=== PATIENT | female | born 1950 | race American Indian/Alaskan Native ===

== ENCOUNTER 2016-11-29 06:45 | Inpatient (IN) | payer MEDICARE ==
[2016-11-29 07:37] LABS: Creatine Kinase MB 1.5 ng/mL (0.0-4.0)
[2016-11-29 07:38] LABS: Anion Gap 21 mmol/L; BUN/Creatinine Ratio 14.16; Blood Urea Nitrogen 17 mg/dL (7-17); Calcium 9.7 mg/dL (8.4-10.2); Carbon Dioxide 22 mmol/L (22-30); Chloride 100.5 mmol/L (98-107); Creatine Kinase 53 units/L (30-135); Glucose 119 mg/dL (65-100); Potassium 4.1 mmol/L (3.6-5.0); Sodium 139 mmol/L (137-145)
[2016-11-29 08:10] LABS: Basophils % (Auto) 0.7 % (0.0-1.8); Eosinophils % (Auto) 1.4 % (0.0-4.3); Hematocrit 47.1 % (30.3-42.9); Hemoglobin 15.3 gm/dl (10.1-14.3); Mean Corpuscular HGB Conc 32 % (30-34); Mean Corpuscular Hemoglobin 28 pg (28-32); Mean Corpuscular Volume 86 fl (79-97); Platelet Count 222 K/mm3 (140-440); Red Blood Count 5.47 M/mm3 (3.65-5.03); Red Cell Distribution Width 14.2 % (13.2-15.2); White Blood Count 8.8 K/mm3 (4.5-11.0)
--- NOTE | 2016-11-29 09:33 | XRay Report ---
Chest 2 views: Compared to 05/03/15. History: Shortness of breath. Findings: Cardiomegaly. Trachea is midline. No consolidation, pneumothorax or pleural effusion. Impression: Cardiomegaly. No acute lung changes.
--- NOTE | 2016-11-29 10:17 | Emergency Department Report ---
ED Shortness of Breath HPI - General Chief Complaint: Dyspnea/Respdistress Stated Complaint: DIFFICULTY IN BREATHING Time Seen by Provider: 11/29/16 10:10 Source: patient Mode of arrival: Ambulatory Limitations: No Limitations - History of Present Illness Initial Comments: The patient describes episodes of essentially paroxysmal nocturnal dyspnea. She states that this occurs when a 1 time a night. She does not describe difficulty and cough or hemoptysis. She denies chest pain pressure or tightness. She's had no hemoptysis. She denies leg pain or swelling. She does state that these episodes to improve with sitting up. The patient is status post CABG she states triple bypass at [facility] 5 years ago. She states she has not followed up with department director for quite some time maybe even since then. She is probably had an angioplasty of her right leg as well. She does not complain of any claudication symptoms. She does not give a history of CHF per se. She has a history of hypertension. Apparently the patient was hyperventilating on arrival. This did improve with nursing de-escalation. At the time I saw her she was breathing normal respiratory rate. Complaint: shortness of breath -: week(s) Consistency: intermittent Known History Of: other Associated Symptoms: denies other symptoms Treatments Prior to Arrival: none - Related Data Home Oxygen Therapy: No Home Medications Medication Instructions Recorded Confirmed Last Taken Cilostazol [Pletal] 50 mg PO BID 02/23/16 02/23/16 Unknown Clopidogrel [Plavix] 75 mg PO QDAY 02/23/16 02/23/16 Unknown Lisinopril [Zestril TAB] 40 mg PO QDAY 02/23/16 02/23/16 02/22/16 Previous Rx's Medication Instructions Recorded Last Taken Type Metoprolol [Lopressor TAB] 50 mg PO BID #60 tablet 05/04/15 02/22/16 Rx amLODIPine [Norvasc] 10 mg PO QDAY #30 tablet 05/04/15 Unknown Rx Allergies Allergy/AdvReac Type Severity Reaction Status Date / Time No Known Allergies Allergy Verified 05/03/15 03:02 ED Review of Systems ROS: Stated complaint: DIFFICULTY IN BREATHING Other details as noted in HPI Constitutional: denies: chills, fever Eyes: denies: eye pain, eye discharge, vision change ENT: denies: ear pain, throat pain Respiratory: shortness of breath. denies: cough, wheezing Cardiovascular: denies: chest pain, palpitations Endocrine: no symptoms reported Gastrointestinal: denies: abdominal pain, nausea, diarrhea Genitourinary: denies: urgency, dysuria, discharge Musculoskeletal: denies: back pain, joint swelling, arthralgia Skin: denies: rash, lesions Neurological: denies: headache, weakness, paresthesias Psychiatric: denies: anxiety, depression Hematological/Lymphatic: denies: easy bleeding, easy bruising ED Past Medical Hx - Past Medical History Previous Medical History?: Yes Hx Hypertension: Yes Hx Heart Attack/AMI: Yes - Surgical History Past Surgical History?: Yes Additional Surgical History: triple bypass, rt leg surgery,CS - Social History Smoking Status: Never Smoker Substance Use Type: None - Medications Home Medications: Home Medications Medication Instructions Recorded Confirmed Last Taken Type Metoprolol [Lopressor TAB] 50 mg PO BID #60 tablet 05/04/15 02/23/16 02/22/16 Rx amLODIPine [Norvasc] 10 mg PO QDAY #30 tablet 05/04/15 02/23/16 Unknown Rx Cilostazol [Pletal] 50 mg PO BID 02/23/16 02/23/16 Unknown History Clopidogrel [Plavix] 75 mg PO QDAY 02/23/16 02/23/16 Unknown History Lisinopril [Zestril TAB] 40 mg PO QDAY 02/23/16 02/23/16 02/22/16 History ED Physical Exam - General Limitations: No Limitations General appearance: alert, in no apparent distress - Head Head exam: Present: atraumatic, normocephalic - Eye Eye exam: Present: normal appearance. Absent: scleral icterus - ENT ENT exam: Present: normal exam, mucous membranes moist - Neck Neck exam: Present: normal inspection. Absent: tenderness, meningismus - Respiratory Respiratory exam: Present: normal lung sounds bilaterally. Absent: respiratory distress - Cardiovascular Cardiovascular Exam: Present: regular rate, normal rhythm. Absent: systolic murmur, diastolic murmur, rubs, gallop - GI/Abdominal GI/Abdominal exam: Present: soft, normal bowel sounds. Absent: distended, tenderness, guarding, rebound, rigid - Extremities Exam Extremities exam: Present: normal inspection - Back Exam Back exam: Present: normal inspection - Neurological Exam Neurological exam: Present: alert, oriented X3, CN II-XII intact. Absent: motor sensory deficit - Psychiatric Psychiatric exam: Present: normal affect, normal mood - Skin Skin exam: Present: warm, dry, intact, normal color. Absent: rash ED Course Vital Signs 11/29/16 11/29/16 11/29/16 06:52 09:11 09:20 Temperature 98.6 F Pulse Rate 98 H 88 Respiratory 24 28 H Rate Blood Pressure 168/115 Blood Pressure 179/106 [Right] O2 Sat by Pulse 99 99 100 Oximetry 11/29/16 11/29/16 11/29/16 09:23 09:30 09:40 Temperature 98.1 F Pulse Rate 85 80 82 Respiratory 16 21 15 Rate Blood Pressure 166/89 166/89 Blood Pressure 168/115 [Right] O2 Sat by Pulse 98 99 100 Oximetry 11/29/16 11/29/16 11/29/16 09:50 10:00 10:10 Temperature Pulse Rate 85 Respiratory 19 24 12 Rate Blood Pressure 162/88 159/88 162/88 Blood Pressure [Right] O2 Sat by Pulse 100 99 99 Oximetry 11/29/16 11/29/16 11/29/16 10:20 11:38 11:40 Temperature Pulse Rate Respiratory 12 15 19 Rate Blood Pressure 162/90 162/90 162/90 Blood Pressure [Right] O2 Sat by Pulse 99 99 99 Oximetry 11/29/16 11/29/16 11/29/16 11:50 12:00 12:10 Temperature Pulse Rate Respiratory 15 10 L 15 Rate Blood Pressure 164/104 156/100 162/90 Blood Pressure [Right] O2 Sat by Pulse 97 97 99 Oximetry 11/29/16 11/29/16 11/29/16 12:20 12:30 12:40 Temperature Pulse Rate Respiratory 15 14 16 Rate Blood Pressure 168/109 162/108 162/108 Blood Pressure [Right] O2 Sat by Pulse 99 99 99 Oximetry 11/29/16 11/29/16 15:10 15:15 Temperature Pulse Rate 105 H Respiratory 16 Rate Blood Pressure 162/108 Blood Pressure 178/119 [Right] O2 Sat by Pulse 98 98 Oximetry - Reevaluation(s) Reevaluation #1: CTA of the chest was performed to exclude pulmonary embolism. Per the radiologist that showed an incidental guide wire piece in the patient's left pulmonary artery. It was not very compelling for pulmonary edema. In fact the lung barajas were essentially clear. Cardiomegaly was noted. 11/29/16 15:39 Reevaluation #2: Patient given aspirin and hydralazine and Nitropaste. She is referred to Dr. Constantino for further evaluation on the hospitalist service. I believe the radiologist's observation of the pulmonary intralobar artery catheter wire months surely be chronic as the patient has had no catheterization for 5 years 11/29/16 15:43 ED Medical Decision Making - Lab Data Result diagrams: 11/29/16 07:03 11/29/16 07:03 Laboratory Results - last 24 hr 11/29/16 11/29/16 07:03 07:03 WBC 8.8 RBC 5.47 H Hgb 15.3 H Hct 47.1 H MCV 86 MCH 28 MCHC 32 RDW 14.2 Plt Count 222 Lymph % (Auto) 24.8 [place] % (Auto) 5.9 Eos % (Auto) 1.4 Baso % (Auto) 0.7 Lymph # 2.2 [place] # 0.5 Eos # 0.1 Baso # 0.1 Seg Neutrophils % 67.2 Seg Neutrophils # 5.9 Sodium 139 Potassium 4.1 Chloride 100.5 Carbon Dioxide 22 Anion Gap 21 BUN 17 Creatinine 1.2 Estimated GFR 55 BUN/Creatinine Ratio 14.16 Glucose 119 H Calcium 9.7 Total Creatine Kinase 53 CK-MB (CK-2) 1.5 CK-MB (CK-2) Rel Index 2.8 Troponin T < 0.010 NT-Pro-B Natriuret Pep 7335 H Laboratory Results - last 24 hr 11/29/16 11/29/16 11/29/16 07:03 07:03 10:34 WBC 8.8 RBC 5.47 H Hgb 15.3 H Hct 47.1 H MCV 86 MCH 28 MCHC 32 RDW 14.2 Plt Count 222 Lymph % (Auto) 24.8 [place] % (Auto) 5.9 Eos % (Auto) 1.4 Baso % (Auto) 0.7 Lymph # 2.2 [place] # 0.5 Eos # 0.1 Baso # 0.1 Seg Neutrophils % 67.2 Seg Neutrophils # 5.9 Sodium 139 Potassium 4.1 Chloride 100.5 Carbon Dioxide 22 Anion Gap 21 BUN 17 Creatinine 1.2 Estimated GFR 55 BUN/Creatinine Ratio 14.16 Glucose 119 H Calcium 9.7 Total Creatine Kinase 53 CK-MB (CK-2) 1.5 CK-MB (CK-2) Rel Index 2.8 Troponin T < 0.010 NT-Pro-B Natriuret Pep 7335 H Urine Color Straw Urine Turbidity Clear Urine pH 5.0 Ur Specific [place] 1.004 Urine Protein <15 mg/dl Urine Glucose (UA) Neg Urine Ketones Neg Urine Blood Neg Urine Nitrite Neg Urine Bilirubin Neg Urine Urobilinogen < 2.0 Ur Leukocyte Esterase Neg Urine WBC (Auto) < 1.0 Urine RBC (Auto) 1.0 U Epithel Cells (Auto) < 1.0 - EKG Data -: EKG Interpreted by Me EKG shows normal: sinus rhythm, axis, intervals, QRS complexes, ST-T waves Rate: normal - EKG Data Interpretation: LVH, other (occasional PVC) - Radiology Data Radiology results: report reviewed interpreted by me: Associated cardiomegaly and perhaps slight cephalization of flow. CTA of the chest was performed to exclude pulmonary embolism. Per the radiologist that showed an incidental guide wire piece in the patient's left pulmonary artery. It was not very compelling for pulmonary edema. In fact the lung barajas were essentially clear. Cardiomegaly was noted. Critical care attestation.: If time is entered above; I have spent that time in minutes in the direct care of this critically ill patient, excluding procedure time. ED Disposition Clinical Impression: Paroxysmal nocturnal dyspnea, Diastolic dysfunction, Foreign body, Uncontrolled hypertension Disposition: OP ADMITTED IP TO THIS HOSP Is pt being admited?: Yes Does the pt Need Aspirin: Yes Condition: Stable Instructions: Hypertension (ED) Referrals: PRIMARY CARE, [Primary Care Provider] - 3-5 Days Time of Disposition: 15:43
[2016-11-29] MEDS ORDERED: NACL 0.9% 1000 ML 1,000 ML IV ONE (10:29)
[2016-11-29] MEDS ORDERED: ROCEPHIN/NS 1 GM/50 ML 1 GM/50 ML BAG IV ONE (10:29)
[2016-11-29] MEDS ORDERED: ZOFRAN IV ONE (10:29)
[2016-11-29 10:51] LABS: Bilirubin,Urine NEG (Negative); Blood,Urine NEG (Negative); Ketones,Urine NEG (Negative); Leukocyte Esterase,Urine NEG (Negative); Nitrite,Urine NEG (Negative); Protein,Urine <15 mg/dL mg/dL (Negative); Urobilinogen,Urine < 2.0 mg/dL (<2.0); WBC,Urine < 1.0 /HPF (0.0-6.0)
[2016-11-29 11:07] LABS: INR 1.02 (0.87-1.13)
[2016-11-29 11:08] LABS: Partial Thromboplastin Time 27.9 Sec. (24.2-36.6)
[2016-11-29 11:11] LABS: Alanine Aminotransferase 27 units/L (7-56); Albumin 4.3 g/dL (3.9-5); Albumin/Globulin Ratio 1.6 %; Alkaline Phosphatase 97 units/L (35-129); Bilirubin,Total 0.8 mg/dL (0.1-1.2)
[2016-11-29 11:29] LABS: Bilirubin,Direct < 0.2 mg/dL (0-0.2)
[2016-11-29] MEDS ORDERED: NACL ONE ×2 (12:06→13:56)
--- NOTE | 2016-11-29 14:48 | Cat Scan Report ---
FINAL REPORT EXAM: CT ANGIO CHEST HISTORY: SALTY TECHNIQUE: CTA of the chest with IV contrast. Multiplanar reformations. MIP images. PRIORS: None. FINDINGS: No thoracic aortic aneurysm or dissection seen. Moderate cardiac enlargement. Visualized portions of the upper abdomen show no significant abnormality. Status post sternotomy. No pathologically enlarged lymph nodes seen. No pulmonary embolism seen. There is a linear metallic density in the left interlobar artery, compatible with a foreign body. This could be from a prior catheterization. No thrombus is seen, however. No pleural effusion or significant lung consolidation seen. IMPRESSION: 1. No pulmonary embolism seen. Metallic wire in the left intralobar artery may be from a prior catheterization procedure. [place] Category 1 finding. I discussed these results immediately before signing this report with Dr. Mills.
[2016-11-29] MEDS ORDERED: NITRO-BID 2% TP ONE (15:33)
[2016-11-29] MEDS ORDERED: APRESOLINE IV ONE (15:33)
[2016-11-29] MEDS ORDERED: ASPIRIN PO ONE (15:33)
--- NOTE | 2016-11-29 15:58 | History and Physical Report ---
History of Present Illness Chief complaint: I cant breathe History of present illness: 66 YO Female with HTN, [place], CAD, PUD, HLD, Vertigo, presents to ED for evaluation. Pt states that she has been experiencing shortness of breath for the past several days, with worsening symptoms over the past 1 day. Pt acknowledges orthopnea, PND, and l bilateral leg swelling. Pt denies productive cough, fever, chills, CP, Palpitations, NVD, syncope, vertigo, trauma, prolonged immobility/travel, individual/family history of DVT/PE. Past History Past Medical History: acute [place], CAD, hyperlipidemia Past Surgical History: CABG, , Other (Right leg surgery) Social history: single. denies: smoking, alcohol abuse, prescription drug abuse Family history: CAD, diabetes, hypertension Medications and Allergies Allergies Allergy/AdvReac Type Severity Reaction Status Date / Time No Known Allergies Allergy Verified 05/03/15 03:02 Home Medications Medication Instructions Recorded Confirmed Last Taken Type Metoprolol [Lopressor TAB] 50 mg PO BID #60 tablet 05/04/15 11/29/16 02/22/16 Rx amLODIPine [Norvasc] 10 mg PO QDAY #30 tablet 05/04/15 11/29/16 Unknown Rx Cilostazol [Pletal] 50 mg PO BID 02/23/16 11/29/16 Unknown History Clopidogrel [Plavix] 75 mg PO QDAY 02/23/16 11/29/16 Unknown History Lisinopril [Zestril TAB] 40 mg PO QDAY 02/23/16 11/29/16 02/22/16 History ALBUTEROL Inhaler [Proair] 2 puff IH QID PRN 11/29/16 11/29/16 Unknown History AtorvaSTATin [Lipitor] 80 mg PO QHS 11/29/16 11/29/16 Unknown History Hydrochlorothiazide [HCTZ] 25 mg PO QAM 11/29/16 11/29/16 Unknown History Review of Systems All systems: negative Cardiovascular: orthopnea, shortness of breath, dyspnea on exertion, paroxysmal nocturnal dyspnea, leg edema Respiratory: shortness of breath Exam - Constitutional Vitals: Temp Pulse Resp BP Pulse Ox 98.1 F 105 H 16 178/119 98 11/29/16 09:23 11/29/16 15:15 11/29/16 15:15 11/29/16 15:15 11/29/16 15:15 General appearance: Present: no acute distress, well-nourished - EENT Eyes: Present: PERRL ENT: hearing intact, clear oral mucosa - Neck Neck: Present: supple, normal ROM - Respiratory Respiratory effort: normal Respiratory: bilateral: diminished, rhonchi - Cardiovascular Heart Sounds: Present: S1 & S2. Absent: rub, click - Extremities Extremities: pulses symmetrical, No edema Extremity abnormal: edema Peripheral Pulses: within normal limits - Abdominal General gastrointestinal: Present: soft, non-tender, non-distended, normal bowel sounds Female genitourinary: Present: normal - Integumentary Integumentary: Present: clear, warm, dry - Musculoskeletal Musculoskeletal: gait normal, strength equal bilaterally - Psychiatric Psychiatric: appropriate mood/affect, intact judgment & insight - Neurologic Neurologic: CNII-XII intact, moves all extremities Results - Labs CBC & Chem 7: 11/29/16 07:03 11/29/16 07:03 Labs: Abnormal lab results 11/29/16 11/29/16 11/29/16 Range/Units 07:03 07:03 10:39 RBC 5.47 H (3.65-5.03) M/mm3 Hgb 15.3 H (10.1-14.3) gm/dl Hct 47.1 H (30.3-42.9) % D-Dimer 486.58 H (0-234) ng/mlDDU Glucose 119 H (65-100) mg/dL NT-Pro-B Natriuret Pep 7335 H (0-900) pg/mL Assessment and Plan - Patient Problems (1) Acute respiratory failure with hypoxemia Current Visit: Yes Status: Acute Plan to address problem: Supplemental oxygen, nebs, aspiration precautions, NIPPV as clinically indicated , pulmonary toilet, incentive spirometry (2) CHF (congestive heart failure) Current Visit: Yes Status: Suspected Qualifiers: Congestive heart failure type: C Congestive heart failure chronicity: C Plan to address problem: CHF Protocol: Cardiology consulted, echo, serial cardiac enzymes, ekg, telemetry monitoring, fluid restriction, daily weight, afterload reduction. (3) Accelerated hypertension Current Visit: Yes Status: Acute Plan to address problem: monitor bp q shift, continue current antihypertensive therapy (4) HLD (hyperlipidemia) Current Visit: Yes Status: Acute Qualifiers: Hyperlipidemia type: H Plan to address problem: continue statin therapy (5) DVT prophylaxis Current Visit: Yes Status: Acute
[2016-11-29] MEDS ORDERED: ZOFRAN IV PRN (17:43)
[2016-11-29] MEDS ORDERED: TYLENOL PO PRN (17:43)
[2016-11-29] MEDS ORDERED: SODIUM CHLORIDE FLUSH SYRINGE 10 ML IV PRN (17:48)
[2016-11-29] MEDS ORDERED: PROAIR IH PRN (17:57)
[2016-11-29] MEDS ORDERED: PROVENTIL IH PRN (18:25)
[2016-11-29 18:36] LABS: Creatine Kinase MB 1.4 ng/mL (0.0-4.0)
[2016-11-29 18:39] LABS: Creatine Kinase 54 units/L (30-135)
[2016-11-29] MEDS: DUONEB 0.5 MG-3 MG/3 ML SOLN IH SCH ×2 (20:39→21:38)
[2016-11-29 21:07] LABS: Creatine Kinase MB 1.7 ng/mL (0.0-4.0)
[2016-11-29 21:08] LABS: Creatine Kinase 70 units/L (30-135)
[2016-11-29] MEDS: LOPRESSOR PO SCH (21:43)
[2016-11-29] MEDS: PLETAL PO SCH (21:44)
[2016-11-30] MEDS: DUONEB 0.5 MG-3 MG/3 ML SOLN IH SCH ×4 (01:03→20:00)
[2016-11-30] MEDS: LASIX IV SCH (09:37)
[2016-11-30] MEDS: PLAVIX PO SCH (09:38)
[2016-11-30] MEDS: PLETAL PO SCH ×2 (09:38→22:21)
[2016-11-30] MEDS: NORVASC PO SCH (09:39)
[2016-11-30] MEDS: LOPRESSOR PO SCH ×2 (09:39→21:50)
[2016-11-30] MEDS: ZESTRIL PO SCH (09:40)
[2016-11-30] MEDS: HCTZ PO SCH (09:40)
--- NOTE | 2016-11-30 10:35 | Progress Note ---
Assessment and Plan Assessment and plan: 1. Acute hypoxemic respiratory failure. Continue supplemental oxygen, pulmonary toileting, incentive spirometry and NIPPV as needed. Etiology secondary to CHF exacerbation. 2. Acute CHF decompensation. Etiology of systolic or diastolic unknown. Check echocardiogram. Cardiology consultation pending. Continue CHF protocol. 3. Accelerated hypertension. Continue antihypertensives medications. 4. Hyperlipidemia. Continue statin therapy. 5. DVT prophylaxis. Start Lovenox daily. History Interval history: History of present illness: 66 YO Female with HTN, [place], CAD, PUD, HLD, previous CVA and vertigo admitted for acute hypoxemic respiratory failure secondary to new CHF exacerbation. Hospitalist Physical - Constitutional Vitals: Temp Pulse Resp BP Pulse Ox 98.2 F 76 20 108/68 97 11/30/16 05:00 11/30/16 09:40 11/30/16 05:00 11/30/16 09:40 11/30/16 05:00 General appearance: Present: no acute distress, well-nourished - EENT Eyes: Present: PERRL, EOM intact ENT: hearing intact, clear oral mucosa, dentition normal - Neck Neck: Present: supple, normal ROM - Respiratory Respiratory effort: normal Respiratory: bilateral: diminished, rales - Cardiovascular Rhythm: regular Heart Sounds: Present: S1 & S2. Absent: gallop, rub - Extremities Extremities: no ischemia, No edema, Full ROM - Abdominal General gastrointestinal: soft, non-tender, non-distended, normal bowel sounds - Integumentary Integumentary: Present: clear, warm, dry - Neurologic Neurologic: CNII-XII intact, moves all extremities Results - Labs CBC & Chem 7: 11/29/16 07:03 11/29/16 07:03 Labs: Laboratory Last Values WBC 8.8 K/mm3 (4.5-11.0) 11/29/16 07:03 RBC 5.47 M/mm3 (3.65-5.03) H 11/29/16 07:03 Hgb 15.3 gm/dl (10.1-14.3) H 11/29/16 07:03 Hct 47.1 % (30.3-42.9) H 11/29/16 07:03 MCV 86 fl (79-97) 11/29/16 07:03 MCH 28 pg (28-32) 11/29/16 07:03 MCHC 32 % (30-34) 11/29/16 07:03 RDW 14.2 % (13.2-15.2) 11/29/16 07:03 Plt Count 222 K/mm3 (140-440) 11/29/16 07:03 Lymph % (Auto) 24.8 % (13.4-35.0) 11/29/16 07:03 [place] % (Auto) 5.9 % (0.0-7.3) 11/29/16 07:03 Eos % (Auto) 1.4 % (0.0-4.3) 11/29/16 07:03 Baso % (Auto) 0.7 % (0.0-1.8) 11/29/16 07:03 Lymph # 2.2 K/mm3 (1.2-5.4) 11/29/16 07:03 [place] # 0.5 K/mm3 (0.0-0.8) 11/29/16 07:03 Eos # 0.1 K/mm3 (0.0-0.4) 11/29/16 07:03 Baso # 0.1 K/mm3 (0.0-0.1) 11/29/16 07:03 Seg Neutrophils % 67.2 % (40.0-70.0) 11/29/16 07:03 Seg Neutrophils # 5.9 K/mm3 (1.8-7.7) 11/29/16 07:03 PT 13.3 Sec. (12.2-14.9) 11/29/16 10:39 INR 1.02 (0.87-1.13) 11/29/16 10:39 APTT 27.9 Sec. (24.2-36.6) 11/29/16 10:39 D-Dimer 486.58 ng/mlDDU (0-234) H 11/29/16 10:39 Sodium 139 mmol/L (137-145) 11/29/16 07:03 Potassium 4.1 mmol/L (3.6-5.0) 11/29/16 07:03 Chloride 100.5 mmol/L (98-107) 11/29/16 07:03 Carbon Dioxide 22 mmol/L (22-30) 11/29/16 07:03 Anion Gap 21 mmol/L 11/29/16 07:03 BUN 17 mg/dL (7-17) 11/29/16 07:03 Creatinine 1.2 mg/dL (0.7-1.2) 11/29/16 07:03 Estimated GFR 55 ml/min 11/29/16 07:03 BUN/Creatinine Ratio 14.16 % 11/29/16 07:03 Glucose 119 mg/dL (65-100) H 11/29/16 07:03 Calcium 9.7 mg/dL (8.4-10.2) 11/29/16 07:03 Total Bilirubin 0.8 mg/dL (0.1-1.2) 11/29/16 10:39 Direct Bilirubin < 0.2 mg/dL (0-0.2) 11/29/16 10:39 AST 25 units/L (5-40) 11/29/16 10:39 ALT 27 units/L (7-56) 11/29/16 10:39 Alkaline Phosphatase 97 units/L (35-129) 11/29/16 10:39 Total Creatine Kinase 70 units/L (30-135) 11/29/16 20:26 CK-MB (CK-2) 1.7 ng/mL (0.0-4.0) 11/29/16 20:26 CK-MB (CK-2) Rel Index 2.4 (0-4) 11/29/16 20:26 Troponin T < 0.010 ng/mL (0.00-0.029) 11/29/16 20:26 NT-Pro-B Natriuret Pep 7335 pg/mL (0-900) H 11/29/16 07:03 Total Protein 7.0 g/dL (6.3-8.2) 11/29/16 10:39 Albumin 4.3 g/dL (3.9-5) 11/29/16 10:39 Albumin/Globulin Ratio 1.6 % 11/29/16 10:39 Urine Color Straw (Yellow) 11/29/16 10:34 Urine Turbidity Clear (Clear) 11/29/16 10:34 Urine pH 5.0 (5.0-7.0) 11/29/16 10:34 Ur Specific [place] 1.004 (1.003-1.030) 11/29/16 10:34 Urine Protein <15 mg/dl mg/dL (Negative) 11/29/16 10:34 Urine Glucose (UA) Neg mg/dL (Negative) 11/29/16 10:34 Urine Ketones Neg mg/dL (Negative) 11/29/16 10:34 Urine Blood Neg (Negative) 11/29/16 10:34 Urine Nitrite Neg (Negative) 11/29/16 10:34 Urine Bilirubin Neg (Negative) 11/29/16 10:34 Urine Urobilinogen < 2.0 mg/dL (<2.0) 11/29/16 10:34 Ur Leukocyte Esterase Neg (Negative) 11/29/16 10:34 Urine WBC (Auto) < 1.0 /HPF (0.0-6.0) 11/29/16 10:34 Urine RBC (Auto) 1.0 /HPF (0.0-6.0) 11/29/16 10:34 U Epithel Cells (Auto) < 1.0 /HPF (0-13.0) 11/29/16 10:34
--- NOTE | 2016-11-30 10:57 | Consultation ---
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 would treat with IV diuretics, adjust BP meds, check echo trop negative x 3 Past History Past Medical History: acute [place], CAD, hyperlipidemia Past Surgical History: CABG, , Other (Right leg surgery) Social history: single. denies: smoking, alcohol abuse, prescription drug abuse Family history: CAD, diabetes, hypertension Medications and Allergies Allergies Allergy/AdvReac Type Severity Reaction Status Date / Time No Known Allergies Allergy Verified 05/03/15 03:02 Home Medications Medication Instructions Recorded Confirmed Last Taken Type Metoprolol [Lopressor TAB] 50 mg PO BID #60 tablet 05/04/15 11/29/16 02/22/16 Rx amLODIPine [Norvasc] 10 mg PO QDAY #30 tablet 05/04/15 11/29/16 Unknown Rx Cilostazol [Pletal] 50 mg PO BID 02/23/16 11/29/16 Unknown History Clopidogrel [Plavix] 75 mg PO QDAY 02/23/16 11/29/16 Unknown History Lisinopril [Zestril TAB] 40 mg PO QDAY 02/23/16 11/29/16 02/22/16 History ALBUTEROL Inhaler [Proair] 2 puff IH QID PRN 11/29/16 11/29/16 Unknown History AtorvaSTATin [Lipitor] 80 mg PO QHS 11/29/16 11/29/16 Unknown History Hydrochlorothiazide [HCTZ] 25 mg PO QAM 11/29/16 11/29/16 Unknown History Active Meds: Active Medications Acetaminophen (Tylenol) 650 mg PO Q4H PRN PRN Reason: Pain MILD(1-3)/Fever >100.5/WHITE Last Admin: 11/29/16 21:42 Dose: 650 mg Albuterol (Proventil) 2.5 mg IH Q4HRT PRN PRN Reason: Shortness Of Breath Albuterol/Ipratropium (Duoneb 0.5 Mg-3 Mg/3 Ml Soln) 1 ampul IH Q6HRT [facility] Last Admin: 11/30/16 07:56 Dose: 1 ampul Amlodipine Besylate (Norvasc) 10 mg PO QDAY [facility] Last Admin: 11/30/16 09:39 Dose: 10 mg Atorvastatin Calcium (Lipitor) 80 mg PO QHS [facility] Last Admin: 11/29/16 21:42 Dose: 80 mg Cilostazol (Pletal) 50 mg PO BID [facility] Last Admin: 11/30/16 09:38 Dose: 50 mg Clopidogrel Bisulfate (Plavix) 75 mg PO QDAY [facility] Last Admin: 11/30/16 09:38 Dose: 75 mg Enoxaparin Sodium (Lovenox) 40 mg SUB-Q QDAY@1000 [place] Furosemide (Lasix) 20 mg IV QDAY [facility] Last Admin: 11/30/16 09:37 Dose: 20 mg Hydrochlorothiazide (Hctz) 25 mg PO QAM [facility] Last Admin: 11/30/16 09:40 Dose: 25 mg Lisinopril (Zestril) 40 mg PO QDAY [facility] Last Admin: 11/30/16 09:40 Dose: 40 mg Metoprolol Tartrate (Lopressor) 50 mg PO BID [facility] Last Admin: 11/30/16 09:39 Dose: 50 mg Ondansetron HCl (Zofran) 4 mg IV Q8H PRN PRN Reason: N/V unrelieved by Reglan Sodium Chloride (Sodium Chloride Flush Syringe 10 Ml) 10 ml IV PRN PRN PRN Reason: LINE FLUSH Physical Examination Vital Signs Temp Pulse Resp BP Pulse Ox 98.6 F 98 H 24 179/106 99 11/29/16 06:52 11/29/16 06:52 11/29/16 06:52 11/29/16 06:52 11/29/16 06:52 General appearance: no acute distress HEENT: Positive: PERRL Neck: Positive: neck supple Cardiac: Positive: Reg Rate and Rhythm, S1/S2. Negative: S3 Lungs: Positive: clear to auscultation Abdomen: Positive: Soft Results 11/29/16 07:03 11/29/16 07:03 Cardiac Enzymes 11/29/16 11/29/16 Range/Units 18:01 20:26 CK-MB (CK-2) 1.4 1.7 (0.0-4.0) ng/mL
[2016-11-30 15:51] LABS: Creatine Kinase MB 1.2 ng/mL (0.0-4.0)
[2016-11-30 15:52] LABS: Creatine Kinase 67 units/L (30-135)
[2016-11-30 16:01] LABS: BUN/Creatinine Ratio 19.23; Calcium 9.7 mg/dL (8.4-10.2); Chloride 94.4 mmol/L (98-107); Potassium 3.5 mmol/L (3.6-5.0)
[2016-12-01] MEDS: DUONEB 0.5 MG-3 MG/3 ML SOLN IH SCH (08:47)
[2016-12-01 09:17] LABS: Basophils % (Auto) 0.5 % (0.0-1.8); Eosinophils % (Auto) 2.8 % (0.0-4.3); Hematocrit 45.8 % (30.3-42.9); Mean Corpuscular HGB Conc 33 % (30-34); Mean Corpuscular Hemoglobin 28 pg (28-32); Mean Corpuscular Volume 85 fl (79-97); Platelet Count 239 K/mm3 (140-440); Red Blood Count 5.37 M/mm3 (3.65-5.03); Red Cell Distribution Width 14.1 % (13.2-15.2); White Blood Count 8.8 K/mm3 (4.5-11.0)
[2016-12-01] MEDS: HCTZ PO SCH (09:20)
[2016-12-01] MEDS: PLETAL PO SCH (09:20)
[2016-12-01] MEDS: ZESTRIL PO SCH (09:21)
[2016-12-01] MEDS: NORVASC PO SCH (09:21)
[2016-12-01] MEDS: PLAVIX PO SCH (09:21)
[2016-12-01] MEDS: LASIX IV SCH (09:22)
[2016-12-01] MEDS: LOPRESSOR PO SCH (09:22)
[2016-12-01 09:31] LABS: Calcium 9.4 mg/dL (8.4-10.2); Chloride 99.2 mmol/L (98-107); Potassium 3.5 mmol/L (3.6-5.0)
[2016-12-01] MEDS ORDERED: LOVENOX SUB-Q SCH ×2 (10:00)
--- NOTE | 2016-12-01 10:48 | Discharge Summary ---
Providers - Providers Date of Admission: 11/29/16 17:43 Date of discharge: 12/02/16 Attending physician: MAGO PALM 11/29/16 Consult to Cardiac Rehabilitation [CONS] Routine Reason For Exam: Phase I 11/29/16 17:47 Consult to Physician [CONS] Routine Consulting Provider: ISRA NESS Reason For Exam: CHF Place consult to:: cardiology Notified:: y Was contact made?: Yes Primary care physician: PROCESS DESIGN CHEMICAL ENGINEER Hospitalization Reason for admission: chf exac Condition: Stable Hospital course: 66 YO Female with HTN, [place], CAD, PUD, HLD, previous CVA and vertigo admitted for acute hypoxemic respiratory failure secondary to new CHF exacerbation. CTA of the chest was found to be negative. Patient has a history of ischemic cardiomyopathy status post CABG over 10 years ago. Patient was found to have an elevated BNP and accelerated hypertension which normalized. Patient received IV diuresis and troponins were found to be negative. Patient clinically improved with chest x-ray and exam unremarkable after treatment. Patient was felt to have her see maximal hospital benefit. Therefore, patient will be discharged home. Patient is follow-up with her primary care physician. Dedicated discharge time 31 minutes. Disposition: DISCHARGED TO HOME OR SELFCARE Time spent for discharge: 31 - Discharge Diagnoses (1) Accelerated hypertension Status: Acute (2) Acute respiratory failure with hypoxemia Status: Acute (3) HLD (hyperlipidemia) Status: Acute Qualifiers: Hyperlipidemia type: H (4) Paroxysmal nocturnal dyspnea Status: Acute (5) Uncontrolled hypertension Status: Acute (6) CHF (congestive heart failure) Status: Suspected Qualifiers: Congestive heart failure type: C Congestive heart failure chronicity: C (7) Hyperlipidemia Status: Chronic Qualifiers: Hyperlipidemia type: H Comment: We'll add continue her simvastatin as an outpatient or HDL is protective we'll try to decrease her LDL below 80 Core Measure Documentation - Palliative Care Palliative Care/ Comfort Measures: Not Applicable - Core Measures Any of the following diagnoses?: none Exam - Constitutional Vitals: Temp Pulse Resp BP Pulse Ox 97.5 F L 80 18 120/76 99 12/01/16 09:00 12/01/16 09:00 12/01/16 09:00 12/01/16 09:00 12/01/16 09:00 General appearance: Present: no acute distress, well-nourished - EENT Eyes: Present: PERRL ENT: hearing intact, clear oral mucosa - Neck Neck: Present: supple, normal ROM - Respiratory Respiratory effort: normal Respiratory: bilateral: diminished - Cardiovascular Heart Sounds: Present: S1 & S2. Absent: rub, click - Extremities Extremities: pulses symmetrical, No edema Peripheral Pulses: within normal limits - Abdominal General gastrointestinal: Present: soft, non-tender, non-distended, normal bowel sounds Female genitourinary: Present: normal - Integumentary Integumentary: Present: clear, warm, dry - Musculoskeletal Musculoskeletal: gait normal, strength equal bilaterally - Psychiatric Psychiatric: appropriate mood/affect, intact judgment & insight - Neurologic Neurologic: CNII-XII intact, moves all extremities Plan Activity: no restrictions Weight Bearing Status: Full Weight Bearing Diet: low fat, low cholesterol, low salt Follow up with: PRIMARY CARE, [Primary Care Provider] - 3-5 Days JULIO TREVIZO MD [Staff Physician] - 7 Days Prescriptions: ALBUTEROL Inhaler [ProAir HFA Inhaler] 2 puff IH QID PRN #30 inha PRN Reason: Shortness Of Breath amLODIPine [Norvasc] 10 mg PO QDAY #30 tablet AtorvaSTATin [Lipitor] 80 mg PO QHS #30 tablet Cilostazol [Pletal] 50 mg PO BID #60 tablet Clopidogrel [Plavix] 75 mg PO QDAY #30 tablet Hydrochlorothiazide [HCTZ] 25 mg PO QAM #30 tablet Lisinopril [Zestril TAB] 40 mg PO QDAY #30 tablet Metoprolol [Lopressor TAB] 50 mg PO BID #60 tablet
--- NOTE | 2016-12-01 14:28 | Progress Note ---
Assessment and Plan Assessment and plan: 1. Acute hypoxemic respiratory failure. Continue supplemental oxygen, pulmonary toileting, incentive spirometry and NIPPV as needed. Etiology secondary to CHF exacerbation. 2. Acute systolic CHF decompensation. Follow-up echocardiogram. Cardiology consultation pending. Continue CHF protocol. 3. Coronary artery disease. Patient with a history of ischemic cardiomyopathy status post CABG over 10 years ago. Given the age of the CABG being greater than 10 years, cardiology would like to evaluate with stress thallium to assess patency of grafts. 4. Accelerated hypertension. Continue antihypertensives medications. 5. Hyperlipidemia. Continue statin therapy. 6. DVT prophylaxis. Start Lovenox daily. - Patient Problems (1) Accelerated hypertension Current Visit: Yes Status: Acute (2) Acute respiratory failure with hypoxemia Current Visit: Yes Status: Acute (3) HLD (hyperlipidemia) Current Visit: Yes Status: Acute Qualifiers: Hyperlipidemia type: H (4) Paroxysmal nocturnal dyspnea Current Visit: Yes Status: Acute (5) Uncontrolled hypertension Current Visit: Yes Status: Acute (6) CHF (congestive heart failure) Current Visit: Yes Status: Suspected Qualifiers: Congestive heart failure type: C Congestive heart failure chronicity: C (7) Hyperlipidemia Current Visit: No Status: Chronic Qualifiers: Hyperlipidemia type: H History Interval history: History of present illness: 66 YO Female with HTN, [place], CAD, PUD, HLD, previous CVA and vertigo admitted for acute hypoxemic respiratory failure secondary to new CHF exacerbation. Hospitalist Physical - Constitutional Vitals: Temp Pulse Resp BP Pulse Ox 97.5 F L 70 20 120/76 98 12/01/16 09:00 12/01/16 10:00 12/01/16 10:00 12/01/16 09:00 12/01/16 10:00 General appearance: Present: no acute distress, well-nourished - EENT Eyes: Present: PERRL, EOM intact ENT: hearing intact, clear oral mucosa, dentition normal - Neck Neck: Present: supple, normal ROM - Respiratory Respiratory effort: normal Respiratory: bilateral: CTA - Cardiovascular Rhythm: regular Heart Sounds: Present: S1 & S2. Absent: gallop, rub - Extremities Extremities: no ischemia, No edema, Full ROM - Abdominal General gastrointestinal: soft, non-tender, non-distended, normal bowel sounds - Integumentary Integumentary: Present: clear, warm, dry - Neurologic Neurologic: CNII-XII intact, moves all extremities Results - Labs CBC & Chem 7: 12/01/16 08:49 04 08:49 Labs: Laboratory Last Values WBC 8.8 K/mm3 (4.5-11.0) 12/01/16 08:49 RBC 5.37 M/mm3 (3.65-5.03) H 12/01/16 08:49 Hgb 15.0 gm/dl (10.1-14.3) H 12/01/16 08:49 Hct 45.8 % (30.3-42.9) H 12/01/16 08:49 MCV 85 fl (79-97) 12/01/16 08:49 MCH 28 pg (28-32) 12/01/16 08:49 MCHC 33 % (30-34) 12/01/16 08:49 RDW 14.1 % (13.2-15.2) 12/01/16 08:49 Plt Count 239 K/mm3 (140-440) 12/01/16 08:49 Lymph % (Auto) 29.1 % (13.4-35.0) 12/01/16 08:49 [place] % (Auto) 8.2 % (0.0-7.3) H 12/01/16 08:49 Eos % (Auto) 2.8 % (0.0-4.3) 12/01/16 08:49 Baso % (Auto) 0.5 % (0.0-1.8) 12/01/16 08:49 Lymph # 2.6 K/mm3 (1.2-5.4) 12/01/16 08:49 [place] # 0.7 K/mm3 (0.0-0.8) 12/01/16 08:49 Eos # 0.3 K/mm3 (0.0-0.4) 12/01/16 08:49 Baso # 0.0 K/mm3 (0.0-0.1) 12/01/16 08:49 Seg Neutrophils % 59.4 % (40.0-70.0) 12/01/16 08:49 Seg Neutrophils # 5.2 K/mm3 (1.8-7.7) 12/01/16 08:49 PT 13.3 Sec. (12.2-14.9) 11/29/16 10:39 INR 1.02 (0.87-1.13) 11/29/16 10:39 APTT 27.9 Sec. (24.2-36.6) 11/29/16 10:39 D-Dimer 486.58 ng/mlDDU (0-234) H 11/29/16 10:39 Sodium 140 mmol/L (137-145) 12/01/16 08:49 Potassium 3.5 mmol/L (3.6-5.0) L 12/01/16 08:49 Chloride 99.2 mmol/L (98-107) 12/01/16 08:49 Carbon Dioxide 26 mmol/L (22-30) 12/01/16 08:49 Anion Gap 18 mmol/L 12/01/16 08:49 BUN 24 mg/dL (7-17) H 12/01/16 08:49 Creatinine 1.5 mg/dL (0.7-1.2) H 12/01/16 08:49 Estimated GFR 42 ml/min 12/01/16 08:49 BUN/Creatinine Ratio 16.00 % 12/01/16 08:49 Glucose 122 mg/dL (65-100) H 12/01/16 08:49 Calcium 9.4 mg/dL (8.4-10.2) 12/01/16 08:49 Total Bilirubin 0.8 mg/dL (0.1-1.2) 11/29/16 10:39 Direct Bilirubin < 0.2 mg/dL (0-0.2) 11/29/16 10:39 AST 25 units/L (5-40) 11/29/16 10:39 ALT 27 units/L (7-56) 11/29/16 10:39 Alkaline Phosphatase 97 units/L (35-129) 11/29/16 10:39 Total Creatine Kinase 67 units/L (30-135) 11/30/16 15:00 CK-MB (CK-2) 1.2 ng/mL (0.0-4.0) 11/30/16 15:00 CK-MB (CK-2) Rel Index 1.7 (0-4) 11/30/16 15:00 Troponin T < 0.010 ng/mL (0.00-0.029) 11/30/16 15:00 NT-Pro-B Natriuret Pep 7335 pg/mL (0-900) H 11/29/16 07:03 Total Protein 7.0 g/dL (6.3-8.2) 11/29/16 10:39 Albumin 4.3 g/dL (3.9-5) 11/29/16 10:39 Albumin/Globulin Ratio 1.6 % 11/29/16 10:39 Urine Color Straw (Yellow) 11/29/16 10:34 Urine Turbidity Clear (Clear) 11/29/16 10:34 Urine pH 5.0 (5.0-7.0) 11/29/16 10:34 Ur Specific [place] 1.004 (1.003-1.030) 11/29/16 10:34 Urine Protein <15 mg/dl mg/dL (Negative) 11/29/16 10:34 Urine Glucose (UA) Neg mg/dL (Negative) 11/29/16 10:34 Urine Ketones Neg mg/dL (Negative) 11/29/16 10:34 Urine Blood Neg (Negative) 11/29/16 10:34 Urine Nitrite Neg (Negative) 11/29/16 10:34 Urine Bilirubin Neg (Negative) 11/29/16 10:34 Urine Urobilinogen < 2.0 mg/dL (<2.0) 11/29/16 10:34 Ur Leukocyte Esterase Neg (Negative) 11/29/16 10:34 Urine WBC (Auto) < 1.0 /HPF (0.0-6.0) 11/29/16 10:34 Urine RBC (Auto) 1.0 /HPF (0.0-6.0) 11/29/16 10:34 U Epithel Cells (Auto) < 1.0 /HPF (0-13.0) 11/29/16 10:34
--- NOTE | 2016-12-01 19:14 | Progress Note ---
Assessment and Plan - Patient Problems (1) Shortness of breath Current Visit: Yes Status: Acute Plan to address problem: The patient is a 66-year-old woman with way coronary bypass over 10 years ago. She presents with a 10-year-old bypass grafts, and acute shortness of breath. The patient surmises that her symptoms are due to today high environmental pollen count. On chest x-ray there is cardiomegaly, but no CHF or interstitial edema. She reports no ischemic cardiac evaluation in the past several years. Due to the high clinical index of suspicion in the presence of 10-year-old grafts, would recommend ischemic evaluation with a thallium stress test in the morning Subjective Date of service: 12/01/16 Interval history: The patient is a 66-year-old woman with way coronary bypass over 10 years ago. She presents with a 10-year-old bypass grafts, and acute shortness of breath. The patient surmises that her symptoms are due to today high environmental pollen count. On chest x-ray there is cardiomegaly, but no CHF or interstitial edema. She reports no ischemic cardiac evaluation in the past several years. Due to the high clinical index of suspicion in the presence of 10-year-old grafts, would recommend ischemic evaluation with a thallium stress test in the morning. Objective Vital Signs Temp Pulse Pulse Pulse Resp BP BP 12/01/16 16:47 76 12/01/16 12:00 97.4 F L 73 18 114/85 12/01/16 10:00 70 70 20 12/01/16 09:00 97.5 F L 80 18 12/01/16 06:52 80 12/01/16 05:20 97.7 F 75 20 92/59 12/01/16 00:50 98.1 F 72 18 123/72 11/30/16 21:50 76 110/62 11/30/16 20:40 97.9 F 76 18 110/62 BP Pulse Ox 12/01/16 16:47 12/01/16 12:00 12/01/16 10:00 98 12/01/16 09:00 120/76 99 12/01/16 06:52 12/01/16 05:20 99 12/01/16 00:50 100 11/30/16 21:50 11/30/16 20:40 98 - Physical Examination General: No Apparent Distress HEENT: Positive: PERRL Neck: Positive: neck supple Cardiac: Positive: Reg Rate and Rhythm Lungs: Positive: Decreased Breath Sounds Neuro: Positive: Grossly Intact Abdomen: Positive: Soft Skin: Positive: Clear Extremities: Absent: edema - Labs and Meds CBC 12/01/16 Range/Units 08:49 WBC 8.8 (4.5-11.0) K/mm3 RBC 5.37 H (3.65-5.03) M/mm3 Hgb 15.0 H (10.1-14.3) gm/dl Hct 45.8 H (30.3-42.9) % Plt Count 239 (140-440) K/mm3 Lymph # 2.6 (1.2-5.4) K/mm3 [place] # 0.7 (0.0-0.8) K/mm3 Eos # 0.3 (0.0-0.4) K/mm3 Baso # 0.0 (0.0-0.1) K/mm3 Comprehensive Metabolic Panel 12/01/16 Range/Units 08:49 Sodium 140 (137-145) mmol/L Potassium 3.5 L (3.6-5.0) mmol/L Chloride 99.2 (98-107) mmol/L Carbon Dioxide 26 (22-30) mmol/L BUN 24 H (7-17) mg/dL Creatinine 1.5 H (0.7-1.2) mg/dL Glucose 122 H (65-100) mg/dL Calcium 9.4 (8.4-10.2) mg/dL
--- NOTE | 2016-12-01 19:34 | Admit Criteria Form ---
Admission Criteria Documentation: CARDIOLOGY GRG Clinical Indications for Admission to Inpatient Care ( Place 'X' for any and all applicable criteria): Hospital admission is needed for appropriate care of the patient because of ANY ONE of the following (1): [ ] I. Hemodynamic instability as indicated by ALL of the following (1)(2)(3) (4)(5) [ ]a) Vital signs or other findings not as expected for chronic patient condition or baseline [ ]b) Instability indicated by ANY ONE of the following: [ ]i) Hypotension [ ]ii) Symptomatic Tachycardia unresponsive to treatment ( e.g., analgesia, fluids, sedation as indicated) [ ]iii) Inadequate perfusion indicated by ANY ONE of the following: [ ] 1) Lactic acidosis (> 2 mmol/L) [ ] 2) New abnormal capillary refill (> 3 seconds) [ ] 3) Reduced urine output [ ] 4) New altered mental status [ ]iv) Orthostatic vital sign changes unresponsive to treatment (e.g., fluids) [ ]v) IV inotropic or vasopressor medication required to maintain adequate blood pressure or perfusion [ ] II. Severe heart failure as indicated by ANY ONE of the following(17)(18) [ ]a) Respiratory distress [ ]b) Hypotension [ ]c) Anasarca (refractory to outpatient therapy) [ ]d) Cardiac arrhythmias of immediate concern [ ]e) Myocardial ischemia [ ] III. Cardiac arrhythmias or findings of immediate concern indicated by ANY ONE of the following (19)(20): [ ] a) Heart rhythms that are inherently dangerous or unstable indicated by ANY ONE of the following (21)(22)(23): [ ] i) Resuscitated ventricular fibrillation or cardiac arrest [ ] ii) Ventricular escape rhythm [ ] iii) Sustained ventricular tachycardia (30 seconds or more of ventricular rhythm at greater than 100 beats per minute) [ ] iv) Nonsustained ventricular tachycardia and ANY ONE of the following: [ ] 1) Suspected cardiac ischemia as cause or consequence of ventricular tachycardia [ ] 2) In setting of acute myocarditis [ ] b) Unstable cardiac conduction defects indicated by ANY ONE of the following(23)(24)(25) [ ] i) Type II second-degree atrioventricular block [ ]ii) Third-degree atrioventricular block [ ]iii) New-onset left bundle branch block with suspected myocardial ischemia [ ]c) Any heart rhythm and ANY ONE of the following (21)(22)(26)(27) (28) [ ] i) Continuous long-term ECG monitoring needed (e.g., initiation of drug requiring monitoring for more than 24 hours) [ ] ii) Patient has automatic implanted cardioverter defibrillator that is repeatedly firing, malfunctioning, or in need of immediate adjustment of settings beyond the scope of ambulatory or observation care [ ]d) Heart rhythms of concern due to ANY ONE of the following: [ ] i) Hypotension [ ] ii) Respiratory distress [ ] iii) Association with other significant symptoms (e.g., bradycardia with syncope or ongoing dizziness, supraventricular tachycardia with chest pain (14)(15)(17) [ ] IV. Monitoring for cardiac contusion beyond the scope of observation care needed [A](30)(31)(32) [ ] V. Surgical or device complication (e.g., valve replacement complication , pacemaker dysfunction) (35)(41)(44)(45)(46) [ ] . Inpatient palliative care needed. [B](49) Also use Inpatient Palliative Care Criteria [ ] VII. Nonbacterial thrombotic (marantic) endocarditis (36)(43)(47)(48) [X ] VIII. Cardiology condition, symptom, or finding for which emergency and observation care has failed or are not considered appropriate. [ ] IX. Acute valvular disease requiring inpatient as indicated by ANY ONE of the following (41) [ ]a) Acute valvular regurgitation (42) [ ]b) Noninfectious valvulitis (43) [ ]c) Obstructive valve thrombosis [ ]d) Paravalvular leak [ ]e) Other significant valvular disorder remaining after emergency or observation level of care (as appropriate) [ ]X. Pericardial disease requiring inpatient treatment as indicated by ANY ONE of the following (33)(34)(35)(36)(37) [ ]a) Suspected tamponade (38)(39)(40) [ ]b) Hemopericardium [ ]c) Other significant pericardial disorder remaining after emergency or observation level of care (as appropriate) [ ] XI. Cardiac ischemia beyond scope of emergency and observation care. [ ] XII. Hypertension requiring inpatient treatment as indicated by ANY ONE of the following (6)(7)(8) [ ]a) SBP greater than 220 mm Hg or DBP greater than 120 mmHg despite treatment [ ]b) SBP greater than 140 mm Hg or DBP greater than 100 mm Hg with evidence of acute end organ damage as indicated by ANY ONE of the following [ ] i) Altered mental status [ ] ii) Acute renal failure as indicated by new onset of ANY ONE of the following (9)(10)(11)(12)(13) [ ]1) 3-fold rise in serum creatinine from baseline [ ]2) Serum creatinine greater than 4 mg/dL ( 354 micromoles/L) with acute rise greater than 0.5 mg/dL (44.2 micromoles/L) [ ]3) Reduction of more than 75% in estimated glomerular filtration rate from baseline [ ]4) Estimated glomerular filtration rate less than 35 mL/min/1.73m2 (0.59 mL/sec/1.73m2) in child up to 18 years of age [ ]5) Cessation of urine output indicated by ALL of the following [ ]A. Adequate volume status [ ]B. Inadequate urine output as indicated by ANY ONE of the following [ ]a. Urine output less than 0.3 mL/kg/hr for 24 hours [ ]b. Anuria (urine output less than 0.1 mL/kg/hr) for 12 hours [ ] iii) Aortic dissection [ ] iv) Myocardial Ischemia [ ] v) Left ventricular heart failure [ ]vi) Retinal Hemorrhage [ ]vii) Other significant finding [ ]c) Hypertension in child requiring inpatient treatment as indicated by ALL of the following(14)(15)(16) [ ] i) Outpatient treatment not effective, not available, or not appropriate [ ]ii) SBP or DBP greater than 95th percentile for age [ ]iii) Evidence of acute end organ damage as indicated by ANY ONE of the following [ ]1) Altered mental status [ ]2) Acute renal failure as indicated by new onset of ANY ONE of the following(9)(10)(11)(12)(13) [ ]A. 3-fold rise in serum creatinine from baseline [ ]B. Serum creatinine greater than 4 mg/dL (354 micromoles/L) with acute rise greater than 0.5 mg/dL (44.2 micromoles/L) [ ]C. Reduction of more than 75% in estimated glomerular filtration rate from baseline [ ]D. Estimated glomerular filtration rate less than 35 mL/min/1.73m2 (0.59 mL/sec/1.73m2) in child up to 18 years of age [ ]E. Cessation of urine output indicated by ALL of the following [ ]a. Adequate volume status [ ]b. Inadequate urine output as indicated by ANY ONE of the following [ ]i) Urine output less than 0.3 mL/kg/hr for 24 hours [ ]ii) Anuria ( urine output less than 0.1 mL/kg/hr) for 12 hours [ ]3) Severe headache [ ]4) Visual disturbance [ ]5) Retinal hemorrhage [ ]6) Other significant finding [ ]XIII. Complications of transplanted heart indicated by ANY ONE of the following(61): [ ]a) Acute graft rejection requiring inpatient management (eg, intravenous immunosuppression)(62)(63) [ ]b) Acute graft heart failure indicated by ANY ONE of the following(64): [ ]i) Hemodynamic instability [ ]ii) Cardiac arrhythmias of immediate concern [ ]iii) Pulmonary edema that is very severe (eg, mechanical ventilation needed, imminent or likely, need for 100% oxygen to keep oxygen saturation above 90%) [ ]iv) Pulmonary edema that is persistent as indicated by ALL of the following: [ ]1) New need for oxygen therapy to keep oxygen saturation above 90% (or increased FiO2 need from baseline) [ ]2) Has not improved sufficiently with emergency department or observation care IV diuretics or other heart failure treatments[E] [ ]v) Altered mental status that is severe or persistent [ ]vi) Increased creatinine (new on laboratory test) with reduction of more than 50% in estimated glomerular filtration rate from baseline [ ]vii) Progressively (ongoing) rising creatinine (known from past laboratory test) with reduction of more than 25% in estimated glomerular filtration rate from baseline [ ]viii) Acute renal failure [ ]ix) Acute peripheral ischemia (eg, examination shows pulseless, cool, mottled, or cyanotic extremity) [ ]x) Pulmonary artery catheter monitoring needed [ ]xi) Other sign or symptom of heart failure requiring inpatient treatment (ie, too severe or not responsive to outpatient and observation care treatment) [ ]c) Infection requiring inpatient management (eg, Hemodynamic instability, need for intravenous antimicrobial treatment)(66)(67)(68)(69)(70) [ ]d) Cardiac allograft vasculopathy requiring inpatient management ( eg evidence of cardiac ischemia)(71) [ ]e) Other complication of transplanted heart (eg, stroke, severe pulmonary hypertension, severe valvular dysfunction) requiring inpatient management(72) The original [facility] content created by [facility] has been revised. The portions of the content which have been revised are identified through the use of italic text or in bold, and [facility] has neither reviewed nor approved the modified material. All other unmodified content is copyright [facility]. Please see references footnoted in the original [facility] edition 2016 Admission Criteria Met: Yes
[2016-12-01 21:20] VITALS: BP 114/72
--- NOTE | 2016-12-02 12:54 | Discharge Summary ---
Providers - Providers Date of Admission: 11/29/16 17:43 Date of discharge: 12/01/16 Attending physician: MAGO PALM 11/29/16 Consult to Cardiac Rehabilitation [CONS] Routine Reason For Exam: Phase I 11/29/16 17:47 Consult to Physician [CONS] Routine Consulting Provider: ISRA NESS Reason For Exam: CHF Place consult to:: cardiology Notified:: y Was contact made?: Yes Primary care physician: [employer] Hospitalization Reason for admission: CHF exac Condition: Stable Hospital course: 66 YO Female with HTN, [place], CAD, PUD, HLD, previous CVA and vertigo admitted for acute hypoxemic respiratory failure secondary to new CHF exacerbation. CTA of the chest was found to be negative. Patient has a history of ischemic cardiomyopathy status post CABG over 10 years ago. Patient was found to have an elevated BNP and accelerated hypertension which normalized. Patient received IV diuresis and troponins were found to be negative. Patient clinically improved with chest x-ray and exam unremarkable after treatment. Patient with a history of ischemic cardiomyopathy status post CABG over 10 years ago. Given the age of the CABG being greater than 10 years, cardiology wanted to evaluate with stress thallium to assess patency of grafts. However, patient refused and signed out AMA. Disposition: LEFT AGAINST MEDICAL ADVICE - Discharge Diagnoses (1) Accelerated hypertension Status: Acute (2) Acute respiratory failure with hypoxemia Status: Acute (3) HLD (hyperlipidemia) Status: Acute Qualifiers: Hyperlipidemia type: H (4) Paroxysmal nocturnal dyspnea Status: Acute (5) Uncontrolled hypertension Status: Acute (6) CHF (congestive heart failure) Status: Suspected Qualifiers: Congestive heart failure type: C Congestive heart failure chronicity: C (7) Hyperlipidemia Status: Chronic Qualifiers: Hyperlipidemia type: H Comment: We'll add continue her simvastatin as an outpatient or HDL is protective we'll try to decrease her LDL below 80 Core Measure Documentation - Palliative Care Palliative Care/ Comfort Measures: Not Applicable - Core Measures Any of the following diagnoses?: heart failure - Heart Failure Discharge Requirements BLU/ARB for LVSD if EF <40%: No Reason for no BLU/ARB: Patient refusal Beta guido at discharge: No Reason for no beta guido on DC: Patient refusal Heart failure comment: AMA discharge Exam - Constitutional Vitals: Temp Pulse Resp BP Pulse Ox 97.7 F 83 20 114/72 97 12/01/16 21:19 12/01/16 21:19 12/01/16 21:19 12/01/16 21:19 12/01/16 21:19 General appearance: Present: no acute distress, well-nourished - EENT Eyes: Present: PERRL ENT: hearing intact, clear oral mucosa - Neck Neck: Present: supple, normal ROM - Respiratory Respiratory effort: normal Respiratory: bilateral: CTA - Cardiovascular Heart Sounds: Present: S1 & S2. Absent: rub, click - Extremities Extremities: pulses symmetrical, No edema Peripheral Pulses: within normal limits - Abdominal General gastrointestinal: Present: soft, non-tender, non-distended, normal bowel sounds Female genitourinary: Present: normal - Integumentary Integumentary: Present: clear, warm, dry - Musculoskeletal Musculoskeletal: gait normal, strength equal bilaterally - Psychiatric Psychiatric: appropriate mood/affect, intact judgment & insight - Neurologic Neurologic: CNII-XII intact, moves all extremities Plan Follow up with: JULIO TREVIZO MD [Staff Physician] - 7 Days PRIMARY CARE, [Primary Care Provider] - 3-5 Days Prescriptions: ALBUTEROL Inhaler [ProAir HFA Inhaler] 2 puff IH QID PRN #30 inha PRN Reason: Shortness Of Breath amLODIPine [Norvasc] 10 mg PO QDAY #30 tablet AtorvaSTATin [Lipitor] 80 mg PO QHS #30 tablet Cilostazol [Pletal] 50 mg PO BID #60 tablet Clopidogrel [Plavix] 75 mg PO QDAY #30 tablet Hydrochlorothiazide [HCTZ] 25 mg PO QAM #30 tablet Lisinopril [Zestril TAB] 40 mg PO QDAY #30 tablet Metoprolol [Lopressor TAB] 50 mg PO BID #60 tablet
== END 2016-12-01 21:27 | disposition left against medical advice (07) | DRG 291 ==
LOC: ED 06:45 → 4A 17:43
PROVIDERS: ADMIT Internal Medicine; ATTEND Hospitalist
DX: I11.0 Hypertensive heart disease with heart failure (principal); J96.01 Acute respiratory failure with hypoxia; E78.5 Hyperlipidemia, unspecified; I25.10 Atherosclerotic heart disease of native coronary artery without angina pectoris; I73.9 Peripheral vascular disease, unspecified; I25.5 Ischemic cardiomyopathy; Z95.1 Presence of aortocoronary bypass graft; Z98.891 History of uterine scar from previous surgery; Z82.49 Family history of ischemic heart disease and other diseases of the circulatory system; Z83.3 Family history of diabetes mellitus; Z86.73 Personal history of transient ischemic attack (TIA), and cerebral infarction without residual deficits; Z53.21 Procedure and treatment not carried out due to patient leaving prior to being seen by health care provider; I50.21 Acute systolic (congestive) heart failure
CPT/HCPCS: 36415; 71020; 71275; 80048; 80074; 81001; 82550; 82553; 83880; 84484; 85025; 85379; 85610; 85730; 87086; 93005; 93010; 94640; 96374; A9270-GY; J0360; J1650; J1940; Q9967

== ENCOUNTER 2017-07-12 10:43 | Inpatient (IN) | payer MEDICARE ==
[2017-07-12 11:20] LABS: Basophils % (Auto) 0.8 % (0.0-1.8); Eosinophils % (Auto) 0.4 % (0.0-4.3); Hematocrit 47.1 % (30.3-42.9); Mean Corpuscular HGB Conc 32 % (30-34); Mean Corpuscular Hemoglobin 29 pg (28-32); Mean Corpuscular Volume 90 fl (79-97); Platelet Count 273 K/mm3 (140-440); Red Blood Count 5.21 M/mm3 (3.65-5.03); Red Cell Distribution Width 16.1 % (13.2-15.2); White Blood Count 8.9 K/mm3 (4.5-11.0)
[2017-07-12 11:33] LABS: Anion Gap 21 mmol/L; BUN/Creatinine Ratio 24; Blood Urea Nitrogen 26 mg/dL (7-17); Calcium 9.1 mg/dL (8.4-10.2); Carbon Dioxide 20 mmol/L (22-30); Chloride 102.8 mmol/L (98-107); Glucose 113 mg/dL (65-100); Potassium 4.3 mmol/L (3.6-5.0); Sodium 139 mmol/L (137-145)
[2017-07-12] MEDS ORDERED: DUONEB *Not for PRN Use IH ONE (11:48)
--- NOTE | 2017-07-12 11:50 | Emergency Department Report ---
HPI - General Chief Complaint: Dyspnea/Respdistress Time Seen by Provider: 07/12/17 11:41 - HPI HPI: This is a 66 year-old female with a past medical history of coronary artery disease, ischemic cardiomyopathy with an EF of 15-20%, hypertension and peripheral vascular disease, who presents to the emergency department, driving herself and be seen, with a complaint of some shortness of breath over the past 1-2 days. The patient was recently admitted to [facility] after she came in with shortness of breath and chest pain secondary to what she believes is black mold in her house. When she left the hospital, she has been staying at a friend's house, and says that the charter pilot light was not related and they were inhaling gas over the past few days. She denies any chest pain, fever, nausea, vomiting. She denies being a smoker. She has a primary care physician but cannot remember the name. No recent travel. She has not taken anything for her symptoms prior to presentation. ED Past Medical Hx - Past Medical History Previous Medical History?: Yes Hx Hypertension: Yes Hx Heart Attack/AMI: Yes - Surgical History Past Surgical History?: Yes Hx Open Heart Surgery: Yes Additional Surgical History: triple bypass, - Social History Smoking Status: Never Smoker Substance Use Type: Prescribed - Medications Home Medications: Home Medications Medication Instructions Recorded Confirmed Last Taken Type ALBUTEROL Inhaler [ProAir HFA 2 puff IH QID PRN #30 inha 12/01/16 06/28/17 Unknown Rx Inhaler] AtorvaSTATin [Lipitor] 80 mg PO QHS #30 tablet 12/01/16 06/28/17 Unknown Rx Cilostazol [Pletal] 50 mg PO BID #60 tablet 12/01/16 06/28/17 Unknown Rx Clopidogrel [Plavix] 75 mg PO QDAY #30 tablet 12/01/16 06/28/17 Unknown Rx Hydrochlorothiazide [HCTZ] 25 mg PO QAM #30 tablet 12/01/16 06/28/17 Unknown Rx Metoprolol [Lopressor TAB] 50 mg PO BID #60 tablet 12/01/16 06/28/17 Unknown Rx amLODIPine [Norvasc] 10 mg PO QDAY #30 tablet 12/01/16 06/28/17 Unknown Rx Gabapentin [Neurontin] 300 mg PO BID #60 cap 07/02/17 Unknown Rx Lisinopril [Zestril TAB] 5 mg PO QDAY #30 tablet 07/02/17 Unknown Rx ED Review of Systems ROS: Stated complaint: DIFFICULTY BREATHING Other details as noted in HPI Comment: All other systems reviewed and negative Constitutional: denies: chills, fever Eyes: denies: eye pain, eye discharge, vision change ENT: denies: ear pain, throat pain Respiratory: shortness of breath. denies: cough Cardiovascular: denies: chest pain, edema Gastrointestinal: denies: abdominal pain, nausea, diarrhea Genitourinary: denies: urgency, dysuria, discharge Musculoskeletal: denies: back pain, joint swelling, arthralgia Skin: denies: rash, lesions Neurological: denies: headache, weakness, paresthesias Physical Exam - Physical Exam Vital Signs: Vital Signs 07/12/17 10:53 Temperature 97.4 F L Pulse Rate 63 Respiratory 22 Rate Blood Pressure 146/98 O2 Sat by Pulse 98 Oximetry ED Course Vital Signs 07/12/17 10:53 Temperature 97.4 F L Pulse Rate 63 Respiratory 22 Rate Blood Pressure 146/98 O2 Sat by Pulse 98 Oximetry ED Medical Decision Making - Lab Data Result diagrams: 07/12/17 10:59 07/12/17 10:59 - EKG Data -: EKG Interpreted by Me EKG shows normal: sinus rhythm (with PVCs), axis, intervals, QRS complexes (LVH) , ST-T waves (nonspecific ST-T waves) Rate: normal - EKG Data When compared to previous EKG there are: previous EKG unavailable Interpretation: other (sinus rhythm with PVCs, LVH, nonspecific ST-T waves) - Radiology Data Radiology results: report reviewed, image reviewed interpreted by me: Chest x-ray shows some mild cardiomegaly and pulmonary vascular congestion. No overt pleural effusions. No pneumonia. PROCEDURE: CT ANGIO CHEST TECHNIQUE: Computerized tomographic angiography of the chest was performed after the IV injection of iodinated nonionic contrast including image processing. The image data was postprocessed using 2-dimensional multiplanar reformatted (MPR) and 3-dimensional (MIP and/or volume rendered) techniques. HISTORY: SOB, elevated dimer COMPARISON: CTA chest dated November 29, 2016 FINDINGS: The metallic wire persist within 2 branches of the left pulmonary artery in the left lower lobe of the lungs. Timing of contrast bolus is suboptimal, as there is poor enhancement of distal pulmonary artery branches in the lower lungs. No acute pulmonary embolus is seen. There is CHF with small pleural effusions and pulmonary edema. This has slightly worsened since prior study. A bleb is seen in the right upper lobe of the lungs. No pneumothorax is seen. Ascending thoracic aorta is top normal limits in size but is not well enhanced to evaluate further. Likely mild reactive lymph nodes are seen in the uzma, similar prior study. IMPRESSION: CHF, pulmonary edema, and small pleural effusions are seen. There is a persistent metallic wire within 2 branches of the left pulmonary artery in the left lower lobe of the lungs. No acute pulmonary embolus is seen, but evaluation of distal branches in the lower lungs is limited due to timing of contrast bolus. - Medical Decision Making The patient originally came in with the complaint of shortness of breath but she thought it was related to possible gas inhalation. Carboxyhemoglobin was almost negligible. Chest x-ray at first did not show any pneumonia or any obvious or significant CHF. However the patient had an elevated d-dimer and CT angiography showed hypervolemia, vascular congestion and pleural effusions and the patient has a BNP of 14,000. She was given some Lasix for diuresis. She was given breathing treatments. She will be admitted for further evaluation and treatment. Accepted for admission by the hospitalist, Dr Constantino. - Differential Diagnosis COPD, CHF, CO poisoning, Pneumonia Critical Care Time: No Critical care attestation.: If time is entered above; I have spent that time in minutes in the direct care of this critically ill patient, excluding procedure time. ED Disposition Clinical Impression: Shortness of breath Dyspnea Qualifiers: Dyspnea type: shortness of breath Qualified Code(s): R06.02 - Shortness of breath; R06.00 - Dyspnea, unspecified; R06.01 - Orthopnea Acute exacerbation of CHF (congestive heart failure) Qualifiers: Congestive heart failure type: unspecified congestive heart failure type Qualified Code(s): I50.9 - Heart failure, unspecified Disposition: OP ADMIT IP TO THIS HOSP Is pt being admited?: Yes Condition: Stable Time of Disposition: 18:21
--- NOTE | 2017-07-12 12:46 | XRay Report ---
CHEST TWO VIEWS: 07/12/17 10:43:00 CLINICAL: Shortness of breath. COMPARISON: 06/28/17 FINDINGS: Stable cardiomegaly with redistribution of pulmonary blood flow to the upper lobes. The lungs are normally expanded and clear. Median sternotomy wires and mediastinal surgical clips.The bones and soft tissues are normal. IMPRESSION: Stable cardiomegaly and pulmonary venous hypertension.No pulmonary edema.
[2017-07-12] MEDS ORDERED: NACL ONE (13:01)
--- NOTE | 2017-07-12 15:28 | Cat Scan Report ---
FINAL REPORT PROCEDURE: CT ANGIO CHEST TECHNIQUE: Computerized tomographic angiography of the chest was performed after the IV injection of iodinated nonionic contrast including image processing. The image data was postprocessed using 2-dimensional multiplanar reformatted (MPR) and 3-dimensional (MIP and/or volume rendered) techniques. HISTORY: SOB, elevated dimer COMPARISON: CTA chest dated November 29, 2016 FINDINGS: The metallic wire persist within 2 branches of the left pulmonary artery in the left lower lobe of the lungs. Timing of contrast bolus is suboptimal, as there is poor enhancement of distal pulmonary artery branches in the lower lungs. No acute pulmonary embolus is seen. There is CHF with small pleural effusions and pulmonary edema. This has slightly worsened since prior study. A bleb is seen in the right upper lobe of the lungs. No pneumothorax is seen. Ascending thoracic aorta is top normal limits in size but is not well enhanced to evaluate further. Likely mild reactive lymph nodes are seen in the uzma, similar prior study. IMPRESSION: CHF, pulmonary edema, and small pleural effusions are seen. There is a persistent metallic wire within 2 branches of the left pulmonary artery in the left lower lobe of the lungs. No acute pulmonary embolus is seen, but evaluation of distal branches in the lower lungs is limited due to timing of contrast bolus.
[2017-07-12] MEDS ORDERED: LASIX IV ONE (16:08)
[2017-07-12] MEDS ORDERED: BABY ASPIRIN PO ONE (16:08)
--- NOTE | 2017-07-12 16:35 | History and Physical Report ---
History of Present Illness Chief complaint: In cant breathe History of present illness: 66 YO Female with HTN, [place], CAD S/P CABG, PUD, HLD, Vertigo, Systolic CHF(EF 15% ) presents to ED for evaluation. Pt states that she has been experiencing shortness of breath for the past two days, with worsening symptoms over the past 1 day. Pt acknowledges orthopnea, PND, and bilateral leg swelling as well as noncompliance with low sodium diet. Pt denies productive cough, fever, chills , CP, Palpitations, NVD, syncope, vertigo, trauma, recent ill contacts, prolonged immobility/travel, individual/family history of DVT/PE, medication noncompliance. Pt seen and evaluated in ED and found to be in respiratory distress, and placed on supplemental oxygen. Past History Past Medical History: acute [place], CAD, heart failure, hypertension Past Surgical History: CABG, Social history: single Family history: diabetes, hypertension Medications and Allergies Allergies Allergy/AdvReac Type Severity Reaction Status Date / Time No Known Allergies Allergy Verified 05/03/15 03:02 Home Medications Medication Instructions Recorded Confirmed Last Taken Type ALBUTEROL Inhaler [ProAir HFA 2 puff IH QID PRN #30 inha 12/01/16 06/28/17 Unknown Rx Inhaler] AtorvaSTATin [Lipitor] 80 mg PO QHS #30 tablet 12/01/16 06/28/17 Unknown Rx Cilostazol [Pletal] 50 mg PO BID #60 tablet 12/01/16 06/28/17 Unknown Rx Clopidogrel [Plavix] 75 mg PO QDAY #30 tablet 12/01/16 06/28/17 Unknown Rx Hydrochlorothiazide [HCTZ] 25 mg PO QAM #30 tablet 12/01/16 06/28/17 Unknown Rx Metoprolol [Lopressor TAB] 50 mg PO BID #60 tablet 12/01/16 06/28/17 Unknown Rx amLODIPine [Norvasc] 10 mg PO QDAY #30 tablet 12/01/16 06/28/17 Unknown Rx Gabapentin [Neurontin] 300 mg PO BID #60 cap 07/02/17 Unknown Rx Lisinopril [Zestril TAB] 5 mg PO QDAY #30 tablet 07/02/17 Unknown Rx Review of Systems Constitutional: weight gain, no weight loss, no fever, no chills, no sweats Ears, nose, mouth and throat: no ear pain, no ear discharge, no tinnitis, no decreased hearing, no nose pain, no nasal congestion, no nasal discharge, no sinus pressure Breasts: no change in shape, no swelling, no mass Cardiovascular: orthopnea, edema, shortness of breath, dyspnea on exertion, paroxysmal nocturnal dyspnea, leg edema, no chest pain Respiratory: no cough, no cough with sputum, no excessive sputum, no hemoptysis Gastrointestinal: no abdominal pain, no nausea, no vomiting, no diarrhea, no constipation Genitourinary Female: no pelvic pain, no flank pain, no menorrhagia, no dysuria , no urinary frequency, no urgency Rectal: no pain, no incontinence, no bleeding Musculoskeletal: no neck stiffness, no neck pain, no shooting arm pain, no arm numbness/tingling, no low back pain, no shooting leg pain Integumentary: no rash, no pruritis, no redness, no sores Neurological: no head injury, no transient paralysis, no paralysis, no weakness , no parathesias, no numbness, no tingling, no seizures, no syncope Psychiatric: no anxiety, no memory loss, no change in sleep habits, no sleep disturbances, no insomnia, no hypersomnia, no change in appetite, no change in libido Endocrine: no cold intolerance, no heat intolerance, no polyphagia, no excessive thirst, no polydipsia, no polyuria, no nocturia Hematologic/Lymphatic: no easy bruising, no easy bleeding Allergic/Immunologic: no urticaria, no allergic rhinitis, no wheezing Exam - Constitutional Vitals: Temp Pulse Resp BP Pulse Ox 97.4 F L 97 H 17 142/93 100 07/12/17 10:53 07/12/17 14:30 07/12/17 14:30 07/12/17 14:30 07/12/17 14:30 General appearance: Present: mild distress - EENT Eyes: Present: PERRL ENT: hearing intact, clear oral mucosa - Neck Neck: Present: supple, normal ROM, masses or JVD - Respiratory Respiratory effort: labored Respiratory: bilateral: diminished, rhonchi - Cardiovascular Heart Sounds: Present: S1 & S2. Absent: rub, click - Extremities Extremities: pulses symmetrical, No edema Extremity abnormal: edema Peripheral Pulses: within normal limits - Abdominal General gastrointestinal: Present: soft, non-tender, non-distended, normal bowel sounds Female genitourinary: Present: normal - Integumentary Integumentary: Present: clear, dry - Musculoskeletal Musculoskeletal: generalized weakness - Psychiatric Psychiatric: appropriate mood/affect, intact judgment & insight - Neurologic Neurologic: CNII-XII intact, moves all extremities Results - Labs CBC & Chem 7: 07/12/17 10:59 07/12/17 10:59 Labs: Abnormal lab results 07/12/17 07/12/17 07/12/17 Range/Units 10:59 10:59 10:59 RBC 5.21 H (3.65-5.03) M/mm3 Hgb 15.0 H (10.1-14.3) gm/dl Hct 47.1 H (30.3-42.9) % RDW 16.1 H (13.2-15.2) % [place] % (Auto) 9.3 H (0.0-7.3) % D-Dimer (0-234) ng/mlDDU Carbon Dioxide 20 L (22-30) mmol/L BUN 26 H (7-17) mg/dL Glucose 113 H (65-100) mg/dL NT-Pro-B Natriuret Pep 00012 H (0-900) pg/mL 07/12/17 Range/Units 11:59 RBC (3.65-5.03) M/mm3 Hgb (10.1-14.3) gm/dl Hct (30.3-42.9) % RDW (13.2-15.2) % [place] % (Auto) (0.0-7.3) % D-Dimer 1606.88 H (0-234) ng/mlDDU Carbon Dioxide (22-30) mmol/L BUN (7-17) mg/dL Glucose (65-100) mg/dL NT-Pro-B Natriuret Pep (0-900) pg/mL Assessment and Plan - Patient Problems (1) Acute exacerbation of CHF (congestive heart failure) Current Visit: Yes Status: Acute Qualifiers: Congestive heart failure type: unspecified congestive heart failure type Qualified Code(s): I50.9 - Heart failure, unspecified Plan to address problem: Admit to telemetry, afterload reduction, fluid restriction, monitor uop q shift , monitor negative fluid balance, diuresis, low sodium diet, daily weight, Cardiology consulted, thyroid panel (2) CAD (coronary artery disease) Current Visit: Yes Status: Acute Qualifiers: Coronary Disease-Associated Artery/Lesion type: [place] artery [place] vs. transplanted heart: [place] heart Associated angina: A Plan to address problem: Anti platelet therapy, statin therapy, telemetry monitoring, low cholesterol diet. (3) Acute respiratory failure with hypoxemia Current Visit: No Status: Acute Plan to address problem: supplemental oxygen, nebulizer therapy, NIPPV as clinically indicated, diuresis , treat chf. (4) Uncontrolled hypertension Current Visit: No Status: Acute Plan to address problem: monotor BP q shift, Jonn inhibitor and beta guido therapy (5) DVT prophylaxis Current Visit: No Status: Acute
[2017-07-12] MEDS ORDERED: PROVENTIL IH PRN (16:57)
[2017-07-12] MEDS ORDERED: TYLENOL PO PRN (16:57)
[2017-07-12] MEDS ORDERED: ZOFRAN IV PRN (16:57)
[2017-07-12 20:45] LABS: ISTAT Base Excess -4; ISTAT HCO3 20.5; ISTAT PCO2 30.1 (35-45); ISTAT PH 7.441 (7.35-7.45); ISTAT PO2 143 (80-105); ISTAT SO2 99; ISTAT TCO2 21
[2017-07-12] MEDS ORDERED: PLETAL PO SCH (22:00)
[2017-07-12] MEDS: NEURONTIN PO SCH (22:36)
[2017-07-12] MEDS: LOPRESSOR PO SCH (22:36)
--- NOTE | 2017-07-13 07:43 | Progress Note ---
<JEFF DELGADO - Last Filed: 07/13/17 15:00> Assessment and Plan Assessment and plan: Patient is a 66 YO Female with HTN, [place], CAD S/P CABG, PUD, HLD, Vertigo, Systolic CHF(EF 15%) presents to ED for evaluation. Pt states that she has been experiencing shortness of breath for the past two days, with worsening symptoms over the past 1 day. Acute respiratory failure with hypoxia Patient oxygen saturation improved with 2LNC; currently SPO2 98%. No acute respiratory distress noted. Aggressive Nebulizers/Inhalers ABG when necessary Oxygen supplement Supportive care Acute on chronic diastolic Congestive heart failure Echocardiogram IVdiuresis, beta blockers and ACEI/ARB Strict I&O's and daily weights Low-sodium/cardiac diet/fluid restriction Closely monitor electrolytes Cardiology evaluation CAD (coronary artery disease) Continue Anti platelet therapy, statin therapy, Low cholesterol diet. Telemetry monitoring, Uncontrolled hypertension Continue on home antihypertensive medication Closely monitor Blood pressure DVT prophylaxis Lovenox History Interval history: Patient denies chest pain,shortness of breath or dizziness. labs and nursing notes reviewed. Hospitalist Physical - Constitutional Vitals: Temp Pulse Resp BP Pulse Ox 97.5 F L 88 21 121/82 100 07/13/17 04:03 07/13/17 04:03 07/13/17 04:03 07/13/17 04:03 07/13/17 04:03 General appearance: Present: mild distress - EENT Eyes: Present: PERRL ENT: hearing intact - Neck Neck: Present: supple - Respiratory Respiratory effort: normal Respiratory: bilateral: CTA - Cardiovascular Rhythm: regular Heart Sounds: Present: S1 & S2 - Abdominal General gastrointestinal: soft, non-tender - Integumentary Integumentary: Present: clear, warm, dry - Psychiatric Psychiatric: appropriate mood/affect - Neurologic Neurologic: CNII-XII intact - Allied Health Allied health notes reviewed: nursing Results - Labs CBC & Chem 7: 07/12/17 10:59 07/12/17 10:59 Labs: Laboratory Last Values WBC 8.9 K/mm3 (4.5-11.0) 07/12/17 10:59 RBC 5.21 M/mm3 (3.65-5.03) H 07/12/17 10:59 Hgb 15.0 gm/dl (10.1-14.3) H 07/12/17 10:59 Hct 47.1 % (30.3-42.9) H 07/12/17 10:59 MCV 90 fl (79-97) 07/12/17 10:59 MCH 29 pg (28-32) 07/12/17 10:59 MCHC 32 % (30-34) 07/12/17 10:59 RDW 16.1 % (13.2-15.2) H 07/12/17 10:59 Plt Count 273 K/mm3 (140-440) 07/12/17 10:59 Lymph % (Auto) 23.6 % (13.4-35.0) 07/12/17 10:59 [place] % (Auto) 9.3 % (0.0-7.3) H 07/12/17 10:59 Eos % (Auto) 0.4 % (0.0-4.3) 07/12/17 10:59 Baso % (Auto) 0.8 % (0.0-1.8) 07/12/17 10:59 Lymph # 2.1 K/mm3 (1.2-5.4) 07/12/17 10:59 [place] # 0.8 K/mm3 (0.0-0.8) 07/12/17 10:59 Eos # 0.0 K/mm3 (0.0-0.4) 07/12/17 10:59 Baso # 0.1 K/mm3 (0.0-0.1) 07/12/17 10:59 Seg Neutrophils % 65.9 % (40.0-70.0) 07/12/17 10:59 Seg Neutrophils # 5.9 K/mm3 (1.8-7.7) 07/12/17 10:59 D-Dimer 1606.88 ng/mlDDU (0-234) H 07/12/17 11:59 POC ABG pH 7.441 (7.35-7.45) 07/12/17 20:41 POC ABG pCO2 30.1 (35-45) L 07/12/17 20:41 POC ABG pO2 143 (80-105) H 07/12/17 20:41 POC ABG HCO3 20.5 07/12/17 20:41 POC ABG Total CO2 21 07/12/17 20:41 POC ABG O2 Sat 99 07/12/17 20:41 POC ABG Base Excess -4 07/12/17 20:41 Carboxyhemoglobin 4.2 07/12/17 12:27 FiO2 3 % 07/12/17 20:41 Sodium 139 mmol/L (137-145) 07/12/17 10:59 Potassium 4.3 mmol/L (3.6-5.0) 07/12/17 10:59 Chloride 102.8 mmol/L (98-107) 07/12/17 10:59 Carbon Dioxide 20 mmol/L (22-30) L 07/12/17 10:59 Anion Gap 21 mmol/L 07/12/17 10:59 BUN 26 mg/dL (7-17) H 07/12/17 10:59 Creatinine 1.1 mg/dL (0.7-1.2) 07/12/17 10:59 Estimated GFR > 60 ml/min 07/12/17 10:59 BUN/Creatinine Ratio 24 % 07/12/17 10:59 Glucose 113 mg/dL (65-100) H 07/12/17 10:59 Calcium 9.1 mg/dL (8.4-10.2) 07/12/17 10:59 Troponin T < 0.010 ng/mL (0.00-0.029) 07/12/17 10:59 NT-Pro-B Natriuret Pep 33185 pg/mL (0-900) H 07/12/17 10:59 TSH 2.060 mlU/mL (0.270-4.200) 07/12/17 20:38 Free T4 1.65 ng/dL (0.76-1.46) H 07/12/17 20:38 <MAMI CARVALHO - Last Filed: 07/13/17 16:34> Assessment and Plan Assessment and plan: I saw and evaluated the patient. I agree with the findings and the plan of care as documented in the Nurse Practitioner's~note, with the following corrections and additions. Follow-up cardiology evaluation and recommendations Patient reports that she is homeless Discuss with case management; for possible placement Continue current management Hospitalist Physical - Constitutional Vitals: Temp Pulse Resp BP Pulse Ox 97.5 F L 99 H 21 108/80 100 07/13/17 04:03 07/13/17 11:36 07/13/17 04:03 07/13/17 11:36 07/13/17 04:03 Results - Labs CBC & Chem 7: 07/12/17 10:59 07/12/17 10:59 Labs: Laboratory Last Values WBC 8.9 K/mm3 (4.5-11.0) 07/12/17 10:59 RBC 5.21 M/mm3 (3.65-5.03) H 07/12/17 10:59 Hgb 15.0 gm/dl (10.1-14.3) H 07/12/17 10:59 Hct 47.1 % (30.3-42.9) H 07/12/17 10:59 MCV 90 fl (79-97) 07/12/17 10:59 MCH 29 pg (28-32) 07/12/17 10:59 MCHC 32 % (30-34) 07/12/17 10:59 RDW 16.1 % (13.2-15.2) H 07/12/17 10:59 Plt Count 273 K/mm3 (140-440) 07/12/17 10:59 Lymph % (Auto) 23.6 % (13.4-35.0) 07/12/17 10:59 [place] % (Auto) 9.3 % (0.0-7.3) H 07/12/17 10:59 Eos % (Auto) 0.4 % (0.0-4.3) 07/12/17 10:59 Baso % (Auto) 0.8 % (0.0-1.8) 07/12/17 10:59 Lymph # 2.1 K/mm3 (1.2-5.4) 07/12/17 10:59 [place] # 0.8 K/mm3 (0.0-0.8) 07/12/17 10:59 Eos # 0.0 K/mm3 (0.0-0.4) 07/12/17 10:59 Baso # 0.1 K/mm3 (0.0-0.1) 07/12/17 10:59 Seg Neutrophils % 65.9 % (40.0-70.0) 07/12/17 10:59 Seg Neutrophils # 5.9 K/mm3 (1.8-7.7) 07/12/17 10:59 D-Dimer 1606.88 ng/mlDDU (0-234) H 07/12/17 11:59 POC ABG pH 7.441 (7.35-7.45) 07/12/17 20:41 POC ABG pCO2 30.1 (35-45) L 07/12/17 20:41 POC ABG pO2 143 (80-105) H 07/12/17 20:41 POC ABG HCO3 20.5 07/12/17 20:41 POC ABG Total CO2 21 07/12/17 20:41 POC ABG O2 Sat 99 07/12/17 20:41 POC ABG Base Excess -4 07/12/17 20:41 Carboxyhemoglobin 4.2 07/12/17 12:27 FiO2 3 % 07/12/17 20:41 Sodium 139 mmol/L (137-145) 07/12/17 10:59 Potassium 4.3 mmol/L (3.6-5.0) 07/12/17 10:59 Chloride 102.8 mmol/L (98-107) 07/12/17 10:59 Carbon Dioxide 20 mmol/L (22-30) L 07/12/17 10:59 Anion Gap 21 mmol/L 07/12/17 10:59 BUN 26 mg/dL (7-17) H 07/12/17 10:59 Creatinine 1.1 mg/dL (0.7-1.2) 07/12/17 10:59 Estimated GFR > 60 ml/min 07/12/17 10:59 BUN/Creatinine Ratio 24 % 07/12/17 10:59 Glucose 113 mg/dL (65-100) H 07/12/17 10:59 Calcium 9.1 mg/dL (8.4-10.2) 07/12/17 10:59 Troponin T < 0.010 ng/mL (0.00-0.029) 07/12/17 10:59 NT-Pro-B Natriuret Pep 17642 pg/mL (0-900) H 07/12/17 10:59 TSH 2.060 mlU/mL (0.270-4.200) 07/12/17 20:38 Free T4 1.65 ng/dL (0.76-1.46) H 07/12/17 20:38
[2017-07-13] MEDS ORDERED: LASIX IV SCH (10:00)
[2017-07-13] MEDS ORDERED: PLAVIX PO SCH (10:00)
[2017-07-13] MEDS: LOPRESSOR PO SCH (11:34)
[2017-07-13] MEDS: NEURONTIN PO SCH ×2 (11:35→22:15)
[2017-07-13] MEDS: ZESTRIL PO SCH (11:35)
[2017-07-13] MEDS: NORVASC PO SCH (11:36)
[2017-07-13] MEDS: LASIX IV SCH (18:24)
[2017-07-14] MEDS: LOPRESSOR PO SCH ×2 (06:23→13:19)
--- NOTE | 2017-07-14 07:46 | Progress Note ---
<JEFF DELGADO - Last Filed: 07/14/17 14:18> Assessment and Plan Assessment and plan: Patient is a 66 YO Female with HTN, [place], CAD S/P CABG, PUD, HLD, Vertigo, Systolic CHF(EF 15%) presents to ED for evaluation. Pt states that she has been experiencing shortness of breath for the past two days, with worsening symptoms over the past 1 day. Acute respiratory failure with hypoxia Patient oxygen saturation improved with 2LNC; currently SPO2 98%. No acute respiratory distress noted. Aggressive Nebulizers/Inhalers ABG when necessary Oxygen supplement Supportive care Acute on chronic systolic Congestive heart failure Recent Echocardiogram with severe ischemic cardiomyopathy, ejection fraction 15- 20% IVdiuresis, beta blockers and ACEI/ARB Strict I&O's and daily weights Low-sodium/cardiac diet/fluid restriction Closely monitor electrolytes Patient will has cardiac catheterization as soon as fluid overload is resolved per cardiology Cardiology evaluation CAD (coronary artery disease) Continue Anti platelet therapy, statin therapy, Low cholesterol diet. Telemetry monitoring, Uncontrolled hypertension Continue on home antihypertensive medication Closely monitor Blood pressure Placement Patient reports that she is homeless Discuss with case management; for possible placement DVT prophylaxis Lovenox History Interval history: Patient denies chest pain,shortness of breath or dizziness. labs and nursing notes reviewed. Hospitalist Physical - Constitutional Vitals: Temp Pulse Resp BP Pulse Ox 97.6 F 88 20 116/87 100 07/14/17 04:33 07/14/17 06:23 07/14/17 04:33 07/14/17 04:33 07/14/17 04:33 General appearance: Present: mild distress - EENT Eyes: Present: PERRL ENT: hearing intact - Neck Neck: Present: supple - Respiratory Respiratory effort: normal Respiratory: bilateral: rales - Cardiovascular Rhythm: regular Heart Sounds: Present: S1 & S2 - Abdominal General gastrointestinal: soft, non-tender - Integumentary Integumentary: Present: clear, warm, dry - Psychiatric Psychiatric: appropriate mood/affect - Neurologic Neurologic: moves all extremities - Allied Health Allied health notes reviewed: nursing Results - Labs CBC & Chem 7: 07/12/17 10:59 07/12/17 10:59 Labs: Laboratory Last Values WBC 8.9 K/mm3 (4.5-11.0) 07/12/17 10:59 RBC 5.21 M/mm3 (3.65-5.03) H 07/12/17 10:59 Hgb 15.0 gm/dl (10.1-14.3) H 07/12/17 10:59 Hct 47.1 % (30.3-42.9) H 07/12/17 10:59 MCV 90 fl (79-97) 07/12/17 10:59 MCH 29 pg (28-32) 07/12/17 10:59 MCHC 32 % (30-34) 07/12/17 10:59 RDW 16.1 % (13.2-15.2) H 07/12/17 10:59 Plt Count 273 K/mm3 (140-440) 07/12/17 10:59 Lymph % (Auto) 23.6 % (13.4-35.0) 07/12/17 10:59 [place] % (Auto) 9.3 % (0.0-7.3) H 07/12/17 10:59 Eos % (Auto) 0.4 % (0.0-4.3) 07/12/17 10:59 Baso % (Auto) 0.8 % (0.0-1.8) 07/12/17 10:59 Lymph # 2.1 K/mm3 (1.2-5.4) 07/12/17 10:59 [place] # 0.8 K/mm3 (0.0-0.8) 07/12/17 10:59 Eos # 0.0 K/mm3 (0.0-0.4) 07/12/17 10:59 Baso # 0.1 K/mm3 (0.0-0.1) 07/12/17 10:59 Seg Neutrophils % 65.9 % (40.0-70.0) 07/12/17 10:59 Seg Neutrophils # 5.9 K/mm3 (1.8-7.7) 07/12/17 10:59 D-Dimer 1606.88 ng/mlDDU (0-234) H 07/12/17 11:59 POC ABG pH 7.441 (7.35-7.45) 07/12/17 20:41 POC ABG pCO2 30.1 (35-45) L 07/12/17 20:41 POC ABG pO2 143 (80-105) H 07/12/17 20:41 POC ABG HCO3 20.5 07/12/17 20:41 POC ABG Total CO2 21 07/12/17 20:41 POC ABG O2 Sat 99 07/12/17 20:41 POC ABG Base Excess -4 07/12/17 20:41 Carboxyhemoglobin 4.2 07/12/17 12:27 FiO2 3 % 07/12/17 20:41 Sodium 139 mmol/L (137-145) 07/12/17 10:59 Potassium 4.3 mmol/L (3.6-5.0) 07/12/17 10:59 Chloride 102.8 mmol/L (98-107) 07/12/17 10:59 Carbon Dioxide 20 mmol/L (22-30) L 07/12/17 10:59 Anion Gap 21 mmol/L 07/12/17 10:59 BUN 26 mg/dL (7-17) H 07/12/17 10:59 Creatinine 1.1 mg/dL (0.7-1.2) 07/12/17 10:59 Estimated GFR > 60 ml/min 07/12/17 10:59 BUN/Creatinine Ratio 24 % 07/12/17 10:59 Glucose 113 mg/dL (65-100) H 07/12/17 10:59 Calcium 9.1 mg/dL (8.4-10.2) 07/12/17 10:59 Troponin T < 0.010 ng/mL (0.00-0.029) 07/12/17 10:59 NT-Pro-B Natriuret Pep 79128 pg/mL (0-900) H 07/12/17 10:59 TSH 2.060 mlU/mL (0.270-4.200) 07/12/17 20:38 Free T4 1.65 ng/dL (0.76-1.46) H 07/12/17 20:38 <MAMI CARVALHO - Last Filed: 07/14/17 17:29> Assessment and Plan Assessment and plan: I saw and evaluated the patient. I agree with the findings and the plan of care as documented in the Nurse Practitioner's~note, with the following corrections and additions. Discussed the case management, for placement, assistance with discharge planning Hospitalist Physical - Constitutional Vitals: Temp Pulse Resp BP Pulse Ox 97.6 F 66 18 124/86 100 07/14/17 04:33 07/14/17 14:10 07/14/17 10:00 07/14/17 14:10 07/14/17 04:33 Results - Labs CBC & Chem 7: 07/12/17 10:59 07/12/17 10:59 Labs: Laboratory Last Values WBC 8.9 K/mm3 (4.5-11.0) 07/12/17 10:59 RBC 5.21 M/mm3 (3.65-5.03) H 07/12/17 10:59 Hgb 15.0 gm/dl (10.1-14.3) H 07/12/17 10:59 Hct 47.1 % (30.3-42.9) H 07/12/17 10:59 MCV 90 fl (79-97) 07/12/17 10:59 MCH 29 pg (28-32) 07/12/17 10:59 MCHC 32 % (30-34) 07/12/17 10:59 RDW 16.1 % (13.2-15.2) H 07/12/17 10:59 Plt Count 273 K/mm3 (140-440) 07/12/17 10:59 Lymph % (Auto) 23.6 % (13.4-35.0) 07/12/17 10:59 [place] % (Auto) 9.3 % (0.0-7.3) H 07/12/17 10:59 Eos % (Auto) 0.4 % (0.0-4.3) 07/12/17 10:59 Baso % (Auto) 0.8 % (0.0-1.8) 07/12/17 10:59 Lymph # 2.1 K/mm3 (1.2-5.4) 07/12/17 10:59 [place] # 0.8 K/mm3 (0.0-0.8) 07/12/17 10:59 Eos # 0.0 K/mm3 (0.0-0.4) 07/12/17 10:59 Baso # 0.1 K/mm3 (0.0-0.1) 07/12/17 10:59 Seg Neutrophils % 65.9 % (40.0-70.0) 07/12/17 10:59 Seg Neutrophils # 5.9 K/mm3 (1.8-7.7) 07/12/17 10:59 D-Dimer 1606.88 ng/mlDDU (0-234) H 07/12/17 11:59 POC ABG pH 7.441 (7.35-7.45) 07/12/17 20:41 POC ABG pCO2 30.1 (35-45) L 07/12/17 20:41 POC ABG pO2 143 (80-105) H 07/12/17 20:41 POC ABG HCO3 20.5 07/12/17 20:41 POC ABG Total CO2 21 07/12/17 20:41 POC ABG O2 Sat 99 07/12/17 20:41 POC ABG Base Excess -4 07/12/17 20:41 Carboxyhemoglobin 4.2 07/12/17 12:27 FiO2 3 % 07/12/17 20:41 Sodium 139 mmol/L (137-145) 07/12/17 10:59 Potassium 4.3 mmol/L (3.6-5.0) 07/12/17 10:59 Chloride 102.8 mmol/L (98-107) 07/12/17 10:59 Carbon Dioxide 20 mmol/L (22-30) L 07/12/17 10:59 Anion Gap 21 mmol/L 07/12/17 10:59 BUN 26 mg/dL (7-17) H 07/12/17 10:59 Creatinine 1.1 mg/dL (0.7-1.2) 07/12/17 10:59 Estimated GFR > 60 ml/min 07/12/17 10:59 BUN/Creatinine Ratio 24 % 07/12/17 10:59 Glucose 113 mg/dL (65-100) H 07/12/17 10:59 Calcium 9.1 mg/dL (8.4-10.2) 07/12/17 10:59 Troponin T < 0.010 ng/mL (0.00-0.029) 07/12/17 10:59 NT-Pro-B Natriuret Pep 93543 pg/mL (0-900) H 07/12/17 10:59 TSH 2.060 mlU/mL (0.270-4.200) 07/12/17 20:38 Free T4 1.65 ng/dL (0.76-1.46) H 07/12/17 20:38
[2017-07-14] MEDS: LASIX IV SCH ×2 (08:13→17:14)
--- NOTE | 2017-07-14 12:41 | Consultation ---
History of Present Illness Consult date: 07/14/17 Consult reason: congestive heart failure History of present illness: This is a 66yr old woman who has a history of 3 vessel coronary artery bypass grafting over 10 years ago who presented to this hospital with shortness of breath, admitted with congestive heart failure. Cardiac consultation was requested for further evaluation. A month ago, patient had an echocardiogram done that reports a decreased left ventricular systolic function, ejection fraction 15-20%. Patient has not had any recent ischemic cardiac evaluation. 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 Past History Past Medical History: acute NV, CAD, heart failure, hypertension Past Surgical History: CABG, Social history: single Family history: diabetes, hypertension Medications and Allergies Allergies Allergy/AdvReac Type Severity Reaction Status Date / Time No Known Allergies Allergy Verified 05/03/15 03:02 Home Medications Medication Instructions Recorded Confirmed Last Taken Type ALBUTEROL Inhaler [ProAir HFA 2 puff IH QID PRN #30 inha 12/01/16 07/13/17 1 Day Ago Rx Inhaler] AtorvaSTATin [Lipitor] 80 mg PO QHS #30 tablet 12/01/16 07/13/17 1 Day Ago Rx Cilostazol [Pletal] 50 mg PO BID #60 tablet 12/01/16 07/13/17 1 Day Ago Rx Clopidogrel [Plavix] 75 mg PO QDAY #30 tablet 12/01/16 07/13/17 1 Day Ago Rx Hydrochlorothiazide [HCTZ] 25 mg PO QAM #30 tablet 12/01/16 07/13/17 1 Day Ago Rx Metoprolol [Lopressor TAB] 50 mg PO BID #60 tablet 12/01/16 07/13/17 1 Day Ago Rx amLODIPine [Norvasc] 10 mg PO QDAY #30 tablet 12/01/16 07/13/17 1 Day Ago Rx Gabapentin [Neurontin] 300 mg PO BID #60 cap 07/02/17 07/13/17 1 Day Ago Rx Lisinopril [Zestril TAB] 5 mg PO QDAY #30 tablet 07/02/17 07/13/17 1 Day Ago Rx Active Meds: Active Medications Acetaminophen (Tylenol) 650 mg PO Q4H PRN PRN Reason: Pain MILD(1-3)/Fever >100.5/WHITE Albuterol (Proventil) 2.5 mg IH Q4HRT PRN PRN Reason: Shortness Of Breath Amlodipine Besylate (Norvasc) 10 mg PO QDAY [facility] Last Admin: 07/13/17 11:36 Dose: 10 mg Aspirin (Baby Aspirin) 81 mg PO QDAY [facility] Atorvastatin Calcium (Lipitor) 80 mg PO QHS [facility] Last Admin: 07/13/17 23:00 Dose: 80 mg Carvedilol (Coreg) 3.125 mg PO BID [facility] Furosemide (Lasix) 40 mg IV 0600,1800 [facility] Last Admin: 07/14/17 08:13 Dose: Not Given Gabapentin (Neurontin) 300 mg PO BID [facility] Last Admin: 07/13/17 22:15 Dose: 300 mg Lisinopril (Zestril) 5 mg PO QDAY [facility] Last Admin: 07/13/17 11:35 Dose: 5 mg Ondansetron HCl (Zofran) 4 mg IV Q8H PRN PRN Reason: N/V unrelieved by Reglan Physical Examination Vital Signs Temp Pulse Resp BP Pulse Ox 97.4 F L 63 22 146/98 98 07/12/17 10:53 07/12/17 10:53 07/12/17 10:53 07/12/17 10:53 07/12/17 10:53 General appearance: no acute distress HEENT: Positive: PERRL Neck: Positive: trachea midline Cardiac: Positive: Reg Rate and Rhythm Lungs: Positive: Decreased Breath Sounds Neuro: Positive: Grossly Intact Extremities: Absent: edema Results 07/12/17 10:59 07/12/17 10:59 Assessment and Plan Acute CHF exacerbation EF 15-20% on recent echo Hx of CAD with remote 3v CABG Hypertension
[2017-07-14] MEDS: NEURONTIN PO SCH ×2 (14:09→21:48)
[2017-07-14] MEDS: NORVASC PO SCH (14:09)
[2017-07-14] MEDS: ZESTRIL PO SCH (14:10)
[2017-07-14] MEDS: PRIMACOR 20 MG in D5W 80 ML IV SCH (15:18)
[2017-07-14] MEDS: COREG PO SCH (21:48)
[2017-07-15] MEDS: LASIX IV SCH (06:19)
[2017-07-15] MEDS: PRIMACOR 20 MG in D5W 80 ML IV SCH (06:20)
[2017-07-15 06:53] LABS: Anion Gap 19 mmol/L; BUN/Creatinine Ratio 22; Blood Urea Nitrogen 22 mg/dL (7-17); Calcium 8.8 mg/dL (8.4-10.2); Carbon Dioxide 26 mmol/L (22-30); Chloride 102.6 mmol/L (98-107); Glucose 89 mg/dL (65-100); Potassium 3.8 mmol/L (3.6-5.0); Sodium 144 mmol/L (137-145)
--- NOTE | 2017-07-15 07:39 | Progress Note ---
Assessment and Plan Assessment and plan: Patient is a 66 YO Female with HTN, [place], CAD S/P CABG, PUD, HLD, Vertigo, Systolic CHF(EF 15%) presents to ED for evaluation. Pt states that she has been experiencing shortness of breath for the past two days, with worsening symptoms over the past 1 day. Acute respiratory failure with hypoxia Patient oxygen saturation improved with 2LNC; currently SPO2 98%. No acute respiratory distress noted. Aggressive Nebulizers/Inhalers ABG when necessary Oxygen supplement Patient refused cardiac cath at this time and she wants to set up appointment at [facility] for follow-up Disposition Cardiology started milrinone drip yesterday, we will D/C drip tomorrow which will be 48hrs. Patient will be discharge tomorrow. Acute on chronic systolic Congestive heart failure Recent Echocardiogram with severe ischemic cardiomyopathy, ejection fraction 15- 20% IVdiuresis, beta blockers and ACEI/ARB Strict I&O's and daily weights Low-sodium/cardiac diet/fluid restriction Closely monitor electrolytes Patient will has cardiac catheterization as soon as fluid overload is resolved per cardiology Patient refused cardiac cath at this time and she wants to set up appointment at [facility] for follow-up Cardiology evaluation CAD (coronary artery disease) Continue Anti platelet therapy, statin therapy, Low cholesterol diet. Telemetry monitoring, Uncontrolled hypertension Continue on home antihypertensive medication Closely monitor Blood pressure Placement Patient reports that she is homeless Discuss with case management; for possible placement DVT prophylaxis Lovenox History Interval history: Patient denies chest pain,shortness of breath or dizziness. labs and nursing notes reviewed. Hospitalist Physical - Constitutional Vitals: Temp Pulse Resp BP Pulse Ox 98.6 F 89 18 98/62 96 07/15/17 04:21 07/15/17 04:21 07/15/17 04:21 07/15/17 04:21 07/15/17 04:21 General appearance: Present: mild distress - EENT Eyes: Present: PERRL ENT: hearing intact - Neck Neck: Present: supple - Respiratory Respiratory effort: normal Respiratory: bilateral: CTA - Cardiovascular Rhythm: regular Heart Sounds: Present: S1 & S2 - Abdominal General gastrointestinal: soft, non-tender - Integumentary Integumentary: Present: clear, warm, dry - Psychiatric Psychiatric: appropriate mood/affect - Neurologic Neurologic: moves all extremities - Allied Health Allied health notes reviewed: nursing Results - Labs CBC & Chem 7: 07/12/17 10:59 07/15/17 05:15 Labs: Laboratory Last Values WBC 8.9 K/mm3 (4.5-11.0) 07/12/17 10:59 RBC 5.21 M/mm3 (3.65-5.03) H 07/12/17 10:59 Hgb 15.0 gm/dl (10.1-14.3) H 07/12/17 10:59 Hct 47.1 % (30.3-42.9) H 07/12/17 10:59 MCV 90 fl (79-97) 07/12/17 10:59 MCH 29 pg (28-32) 07/12/17 10:59 MCHC 32 % (30-34) 07/12/17 10:59 RDW 16.1 % (13.2-15.2) H 07/12/17 10:59 Plt Count 273 K/mm3 (140-440) 07/12/17 10:59 Lymph % (Auto) 23.6 % (13.4-35.0) 07/12/17 10:59 [place] % (Auto) 9.3 % (0.0-7.3) H 07/12/17 10:59 Eos % (Auto) 0.4 % (0.0-4.3) 07/12/17 10:59 Baso % (Auto) 0.8 % (0.0-1.8) 07/12/17 10:59 Lymph # 2.1 K/mm3 (1.2-5.4) 07/12/17 10:59 [place] # 0.8 K/mm3 (0.0-0.8) 07/12/17 10:59 Eos # 0.0 K/mm3 (0.0-0.4) 07/12/17 10:59 Baso # 0.1 K/mm3 (0.0-0.1) 07/12/17 10:59 Seg Neutrophils % 65.9 % (40.0-70.0) 07/12/17 10:59 Seg Neutrophils # 5.9 K/mm3 (1.8-7.7) 07/12/17 10:59 PT 13.7 Sec. (12.2-14.9) 07/15/17 05:15 INR 1.00 (0.87-1.13) 07/15/17 05:15 D-Dimer 1606.88 ng/mlDDU (0-234) H 07/12/17 11:59 POC ABG pH 7.441 (7.35-7.45) 07/12/17 20:41 POC ABG pCO2 30.1 (35-45) L 07/12/17 20:41 POC ABG pO2 143 (80-105) H 07/12/17 20:41 POC ABG HCO3 20.5 07/12/17 20:41 POC ABG Total CO2 21 07/12/17 20:41 POC ABG O2 Sat 99 07/12/17 20:41 POC ABG Base Excess -4 07/12/17 20:41 Carboxyhemoglobin 4.2 07/12/17 12:27 FiO2 3 % 07/12/17 20:41 Sodium 144 mmol/L (137-145) 07/15/17 05:15 Potassium 3.8 mmol/L (3.6-5.0) 07/15/17 05:15 Chloride 102.6 mmol/L (98-107) 07/15/17 05:15 Carbon Dioxide 26 mmol/L (22-30) 07/15/17 05:15 Anion Gap 19 mmol/L 07/15/17 05:15 BUN 22 mg/dL (7-17) H 07/15/17 05:15 Creatinine 1.0 mg/dL (0.7-1.2) 07/15/17 05:15 Estimated GFR > 60 ml/min 07/15/17 05:15 BUN/Creatinine Ratio 22 % 07/15/17 05:15 Glucose 89 mg/dL (65-100) 07/15/17 05:15 POC Glucose 118 (70-105) H 07/14/17 17:05 Calcium 8.8 mg/dL (8.4-10.2) 07/15/17 05:15 Troponin T < 0.010 ng/mL (0.00-0.029) 07/12/17 10:59 NT-Pro-B Natriuret Pep 54605 pg/mL (0-900) H 07/12/17 10:59 TSH 2.060 mlU/mL (0.270-4.200) 07/12/17 20:38 Free T4 1.65 ng/dL (0.76-1.46) H 07/12/17 20:38
[2017-07-15] MEDS: ZESTRIL PO SCH ×2 (08:15→15:03)
--- NOTE | 2017-07-15 08:15 | Progress Note ---
Assessment and Plan Acute systolic heart failure EF 15-20% on recent echo Refusing coronary angiography Hx of CAD with remote 3v CABG Hypertension Elevated D-Dimer Negative CTA chest for PE Recommendations: Continue medical therapy with BB, ACEi and diuretics Discontinue milrinone infusion Patient wants to set up appointment at [facility] for follow-up May go home on lasix 40 mg po once a day Subjective Date of service: 07/15/17 Principal diagnosis: Heart failure Interval history: Patient is refusing a cardiac cath this morning She denies chest pain or shortness of breath Objective Vital Signs Temp Pulse Pulse Resp BP Pulse Ox 07/15/17 04:21 98.6 F 89 18 98/62 96 07/15/17 03:37 82 07/15/17 00:52 98.5 F 82 18 101/53 97 07/14/17 21:48 90 99/61 07/14/17 20:49 97.8 F 90 18 99/61 99 07/14/17 18:18 97.9 F 99 H 20 147/78 98 07/14/17 14:10 66 124/86 07/14/17 14:09 66 124/86 07/14/17 12:38 97.5 F L 92 H 18 124/86 100 07/14/17 10:00 66 18 07/14/17 08:28 97.4 F L 85 18 129/82 100 - Physical Examination HEENT: Positive: PERRL Neck: Positive: trachea midline Cardiac: Positive: Reg Rate and Rhythm Lungs: Positive: Normal Exam Neuro: Positive: Grossly Intact Extremities: Absent: edema - Labs and Meds Coagulation 07/15/17 Range/Units 05:15 PT 13.7 (12.2-14.9) Sec. INR 1.00 (0.87-1.13) Comprehensive Metabolic Panel 07/15/17 Range/Units 05:15 Sodium 144 (137-145) mmol/L Potassium 3.8 (3.6-5.0) mmol/L Chloride 102.6 (98-107) mmol/L Carbon Dioxide 26 (22-30) mmol/L BUN 22 H (7-17) mg/dL Creatinine 1.0 (0.7-1.2) mg/dL Glucose 89 (65-100) mg/dL Calcium 8.8 (8.4-10.2) mg/dL
[2017-07-15] MEDS: NEURONTIN PO SCH ×2 (08:16→15:03)
[2017-07-15] MEDS: COREG PO SCH ×2 (08:16→14:53)
[2017-07-15] MEDS: NORVASC PO SCH ×2 (08:16→15:03)
[2017-07-15] MEDS: BABY ASPIRIN PO SCH ×2 (08:17→14:52)
[2017-07-15] MEDS ORDERED: K-DUR PO SCH (10:00)
[2017-07-15] MEDS ORDERED: LASIX PO SCH (10:00)
[2017-07-15 13:50] VITALS: BP 100/57
--- NOTE | 2017-07-15 15:05 | Discharge Summary ---
<JEFF DELGADO - Last Filed: 07/15/17 20:16> Providers - Providers Date of Admission: 07/12/17 16:58 Date of discharge: 07/15/17 Attending physician: MAMI CARVALHO 07/12/17 19:56 Consult to Physician [CONS] Routine Consulting Provider: ISRA NESS Reason For Exam: chf Place consult to:: counts include [id number] beds at the [facility] Notified:: y Comment:: added to list Primary care physician: IMPLEMENTATION LEAD Hospitalization Reason for admission: CHF Condition: Stable Hospital course: Patient is a 66 years old Female with HTN, MN, CAD S/P CABG, PUD, HLD, Vertigo, Systolic CHF(EF 15%) presents to ED for evaluation. Pt states that she has been experiencing shortness of breath for the past two days, with worsening symptoms over the past 1 day. Patient was diagnosed with Acute respiratory failure with hypoxia, Acute on chronic systolic Congestive heart failure, CAD (coronary artery disease) and Uncontrolled hypertension. Chest xray showed CHF/pulmonary edema. Echocardiogram with severe ischemic cardiomyopathy, ejection fraction 15- 20%. Patient advised cardiac catheterization as soon as fluid overload is resolved but she refused cardiac cath at this time and she wants to set up appointment at [facility] for follow-up. Patient presented with Shortness of breath due to CHF exacerbation. She was treated with milrinone drip. Also IV diuresis, beta blockers and ACEI/ARB antilipid agents, antihypertensive medications. Patient clinically improved. Patient advised to follow-up with [facility] within 2 weeks of discharge. Discharge Diagnosed Acute respiratory failure with hypoxia Acute on chronic systolic Congestive heart failure CAD (coronary artery disease) Uncontrolled hypertension Placement Disposition: - TO HOME OR SELFCARE Time spent for discharge: 35 minutes Core Measure Documentation - Palliative Care Palliative Care/ Comfort Measures: Not Applicable - Core Measures Any of the following diagnoses?: none Exam - Constitutional Vitals: Temp Pulse Resp BP Pulse Ox 98.5 F 79 18 100/57 100 07/15/17 12:00 07/15/17 12:00 07/15/17 12:00 07/15/17 12:00 07/15/17 14:11 General appearance: Present: no acute distress - EENT Eyes: Present: PERRL ENT: hearing intact - Neck Neck: Present: supple - Respiratory Respiratory effort: normal Respiratory: bilateral: CTA - Cardiovascular Rhythm: regular Heart Sounds: Present: S1 & S2 - Abdominal General gastrointestinal: Present: soft, non-tender Female genitourinary: Present: deferred - Rectal Rectal Exam: deferred - Integumentary Integumentary: Present: clear, warm, dry - Musculoskeletal Musculoskeletal: strength equal bilaterally - Psychiatric Psychiatric: appropriate mood/affect - Neurologic Neurologic: moves all extremities - Allied Health Allied health notes reviewed: nursing Plan Diet: low fat, low cholesterol, low salt Follow up with: [facility] [Provider Group] - 7 Days PRIMARY MD RAJINDER [Primary Care Provider] - 3-5 Days ISRA NESS MD [Staff Physician] - 7 Days Prescriptions: Aspirin [Aspirin BABY CHEW TAB] 81 mg PO QDAY #30 tab.chew AtorvaSTATin [Lipitor] 80 mg PO QHS #30 tablet Carvedilol [Coreg] 3.125 mg PO BID 30 Days tablet Clopidogrel [Plavix] 75 mg PO QDAY #30 tablet Furosemide [Lasix TAB] 40 mg PO QDAY #30 tablet Lisinopril [Zestril TAB] 5 mg PO QDAY 30 Days tablet <MAMI CARVALHO - Last Filed: 07/16/17 18:16> Providers - Providers Date of Admission: 07/12/17 16:58 Attending physician: MAMI CARVALHO 07/12/17 19:56 Consult to Physician [CONS] Routine Consulting Provider: ISRA NESS Reason For Exam: chf Place consult to:: counts include 234 beds at the [facility] Notified:: y Comment:: added to list Primary care physician: IMPLEMENTATION LEAD Exam - Constitutional Vitals: Temp Pulse Resp BP Pulse Ox 98.5 F 79 18 100/57 100 07/15/17 12:00 07/15/17 12:00 07/15/17 12:00 07/15/17 12:00 07/15/17 14:11
== END 2017-07-15 16:24 | disposition home or self-care (01) | DRG 291 ==
LOC: ED 10:43 → 4A 16:58
PROVIDERS: ADMIT Internal Medicine; ATTEND Internal Medicine
PROC: 4A033R1 Measurement of Arterial Saturation, Peripheral, Percutaneous Approach (ICD-10-PCS; principal; 2017-07-12)
DX: I11.0 Hypertensive heart disease with heart failure (principal); J96.01 Acute respiratory failure with hypoxia; I50.43 Acute on chronic combined systolic (congestive) and diastolic (congestive) heart failure; I25.10 Atherosclerotic heart disease of native coronary artery without angina pectoris; I25.5 Ischemic cardiomyopathy; I73.9 Peripheral vascular disease, unspecified; Z95.1 Presence of aortocoronary bypass graft; Z79.899 Other long term (current) drug therapy; I25.2 Old myocardial infarction; E78.5 Hyperlipidemia, unspecified; Z83.3 Family history of diabetes mellitus; Z82.49 Family history of ischemic heart disease and other diseases of the circulatory system; K27.9 Peptic ulcer, site unspecified, unspecified as acute or chronic, without hemorrhage or perforation
CPT/HCPCS: 36415; 36600; 71020; 71275; 80048; 82375; 82803; 82962; 83880; 84439; 84443; 84484; 85025; 85379; 85610; 93005; 93010; 94760; 96374; A9270-GY; J1940; J2260; Q9967

== ENCOUNTER 2017-07-24 01:16 | Inpatient (IN) | payer MEDICARE ==
[2017-07-24 02:15] LABS: Basophils % (Auto) 0.7 % (0.0-1.8); Eosinophils % (Auto) 1.2 % (0.0-4.3); Hematocrit 46.2 % (30.3-42.9); Mean Corpuscular HGB Conc 32 % (30-34); Mean Corpuscular Hemoglobin 29 pg (28-32); Mean Corpuscular Volume 89 fl (79-97); Platelet Count 240 K/mm3 (140-440); Red Blood Count 5.18 M/mm3 (3.65-5.03); Red Cell Distribution Width 15.7 % (13.2-15.2)
[2017-07-24 02:31] LABS: Anion Gap 20 mmol/L; BUN/Creatinine Ratio 19; Blood Urea Nitrogen 23 mg/dL (7-17); Calcium 9.6 mg/dL (8.4-10.2); Carbon Dioxide 24 mmol/L (22-30); Chloride 101.4 mmol/L (98-107); Glucose 105 mg/dL (65-100); Potassium 4.2 mmol/L (3.6-5.0); Sodium 141 mmol/L (137-145)
--- NOTE | 2017-07-24 03:40 | XRay Report ---
FINAL REPORT PROCEDURE: XR CHEST ROUTINE 2V TECHNIQUE: PA and lateral chest radiographs were obtained. CPT 78957 HISTORY: Shortness of breath COMPARISON: No prior studies are available for comparison. FINDINGS: Heart: The heart is borderline enlarged.. Mediastinum/Vessels: Normal. Lungs/Pleural space: Lungs are expanded. There are mild fibrotic changes but no active infiltrates. There are no effusions or pneumothoraces.. Bony thorax: No acute osseous abnormality. Other: There has been open heart surgery. IMPRESSION: There is mild cardiomegaly. There is no acute lung disease..
--- NOTE | 2017-07-24 03:41 | Emergency Department Report ---
ED Shortness of Breath HPI - General Chief Complaint: Dyspnea/Respdistress Stated Complaint: SHORT OF BREATH Time Seen by Provider: 07/24/17 03:37 Source: patient Mode of arrival: Ambulatory Limitations: No Limitations - History of Present Illness Initial Comments: Patient is 66-year-old female with past medical history of CAD triple bypass and hypertension presents to ER with shortness of breath for 6 hours. Patient states she was normal prior to that. Having some issues in her house with mold. Denies chest pain and fever. MD Complaint: shortness of breath -: Sudden, hour(s) Severity: severe Consistency: constant Improves With: rest Worsens With: exertion Context: allergen exposure Associated Symptoms: cough Treatments Prior to Arrival: none - Related Data Home Oxygen Therapy: No Previous Rx's Medication Instructions Recorded Last Taken Type ALBUTEROL Inhaler [ProAir HFA 2 puff IH QID PRN #30 inha 12/01/16 1 Day Ago Rx Inhaler] ~07/12/17 Cilostazol [Pletal] 50 mg PO BID #60 tablet 12/01/16 1 Day Ago Rx ~07/12/17 Gabapentin [Neurontin] 300 mg PO BID #60 cap 07/02/17 1 Day Ago Rx ~07/12/17 Aspirin [Aspirin BABY CHEW TAB] 81 mg PO QDAY #30 tab.chew 07/15/17 Unknown Rx AtorvaSTATin [Lipitor] 80 mg PO QHS #30 tablet 07/15/17 Unknown Rx Carvedilol [Coreg] 3.125 mg PO BID 30 Days tablet 07/15/17 Unknown Rx Clopidogrel [Plavix] 75 mg PO QDAY #30 tablet 07/15/17 Unknown Rx Furosemide [Lasix TAB] 40 mg PO QDAY #30 tablet 07/15/17 Unknown Rx Lisinopril [Zestril TAB] 5 mg PO QDAY 30 Days tablet 07/15/17 Unknown Rx Allergies Allergy/AdvReac Type Severity Reaction Status Date / Time No Known Allergies Allergy Verified 05/03/15 03:02 ED Review of Systems ROS: Stated complaint: SHORT OF BREATH Other details as noted in HPI Comment: All other systems reviewed and negative Constitutional: no symptoms reported, see HPI Eyes: as per HPI ENT: as per HPI Respiratory: see HPI, cough, shortness of breath Cardiovascular: as per HPI Endocrine: no symptoms reported Gastrointestinal: as per HPI Genitourinary: as per HPI Musculoskeletal: as per HPI Skin: as per HPI Neurological: as per HPI Psychiatric: as per HPI Hematological/Lymphatic: as per HPI ED Past Medical Hx - Past Medical History Previous Medical History?: Yes Hx Hypertension: Yes Hx Heart Attack/AMI: Yes Hx Congestive Heart Failure: No Hx Diabetes: No Hx Asthma: No Hx COPD: No - Surgical History Past Surgical History?: Yes Hx Open Heart Surgery: Yes Additional Surgical History: triple bypass, - Social History Smoking Status: Never Smoker Substance Use Type: None - Medications Home Medications: Home Medications Medication Instructions Recorded Confirmed Last Taken Type ALBUTEROL Inhaler [ProAir HFA 2 puff IH QID PRN #30 inha 12/01/16 07/13/17 1 Day Ago Rx Inhaler] ~07/12/17 Cilostazol [Pletal] 50 mg PO BID #60 tablet 12/01/16 07/13/17 1 Day Ago Rx ~07/12/17 Gabapentin [Neurontin] 300 mg PO BID #60 cap 07/02/17 07/13/17 1 Day Ago Rx ~07/12/17 Aspirin [Aspirin BABY CHEW TAB] 81 mg PO QDAY #30 tab.chew 07/15/17 Unknown Rx AtorvaSTATin [Lipitor] 80 mg PO QHS #30 tablet 07/15/17 Unknown Rx Carvedilol [Coreg] 3.125 mg PO BID 30 Days tablet 07/15/17 Unknown Rx Clopidogrel [Plavix] 75 mg PO QDAY #30 tablet 07/15/17 Unknown Rx Furosemide [Lasix TAB] 40 mg PO QDAY #30 tablet 07/15/17 Unknown Rx Lisinopril [Zestril TAB] 5 mg PO QDAY 30 Days tablet 07/15/17 Unknown Rx ED Physical Exam - General Limitations: No Limitations General appearance: alert, in no apparent distress - Head Head exam: Present: atraumatic, normocephalic - Eye Eye exam: Present: normal appearance - ENT ENT exam: Present: mucous membranes moist - Neck Neck exam: Present: normal inspection - Respiratory Respiratory exam: Present: normal lung sounds bilaterally. Absent: respiratory distress - Cardiovascular Cardiovascular Exam: Present: regular rate, normal rhythm. Absent: systolic murmur, diastolic murmur, rubs, gallop - GI/Abdominal GI/Abdominal exam: Present: soft, normal bowel sounds - Extremities Exam Extremities exam: Present: normal inspection - Back Exam Back exam: Present: normal inspection - Neurological Exam Neurological exam: Present: alert, oriented X3 - Psychiatric Psychiatric exam: Present: normal affect, normal mood - Skin Skin exam: Present: warm, dry, intact, normal color. Absent: rash ED Course Vital Signs 07/24/17 07/24/17 07/24/17 01:23 01:40 03:25 Temperature 97.3 F L 97.3 F L 97.6 F Pulse Rate 101 H 100 H 97 H Respiratory 18 18 20 Rate Blood Pressure 148/106 Blood Pressure 148/108 135/103 [Right] O2 Sat by Pulse 98 98 97 Oximetry ED Medical Decision Making - Lab Data Result diagrams: 07/24/17 01:57 07/24/17 01:57 - EKG Data -: EKG Interpreted by Me EKG shows normal: sinus rhythm Rate: normal - EKG Data When compared to previous EKG there are: no significant change, changes noted Interpretation: no acute changes, normal EKG - Radiology Data Radiology results: image reviewed No acute findings - Medical Decision Making 66-year-old female presented to the ER for shortness of breath with past medical history of CAD and triple bypass and hypertension. Consult hospitalist for admission. Hospitalist agreed to admit. - Differential Diagnosis acs, sob. Critical care attestation.: If time is entered above; I have spent that time in minutes in the direct care of this critically ill patient, excluding procedure time. ED Disposition Clinical Impression: SOB (shortness of breath), CAD (coronary artery disease) Disposition: OP ADMIT IP TO THIS HOSP Is pt being admited?: Yes Does the pt Need Aspirin: No Condition: Serious
[2017-07-24] MEDS ORDERED: PERCOCET 5/325 PO ONE (05:35)
[2017-07-24] MEDS ORDERED: ZOFRAN IV PRN (05:48)
[2017-07-24] MEDS ORDERED: DULCOLAX PR PRN (05:48)
[2017-07-24] MEDS ORDERED: PERCOCET 5/325 PO PRN (05:48)
[2017-07-24] MEDS ORDERED: TYLENOL PO PRN (05:48)
[2017-07-24] MEDS ORDERED: MILK OF MAGNESIA PO PRN (05:48)
[2017-07-24] MEDS ORDERED: PROVENTIL IH PRN (06:15)
--- NOTE | 2017-07-24 06:19 | History and Physical Report ---
History of Present Illness Date of examination: 07/24/17 History of present illness: 66 -year-old woman with history of hypertension, hyperlipidemia CAD, heart failure comes to the emergency room with complaints of shortness of breath 2 dayswhich has worsened. Patient stated that she recently developed mold in her house and since then her problems of shortness of breath started Review Of Systems: Constitutional: no weight loss Ears, eyes, nose, mouth and throat: no nasal congestion, no nasal discharge, no sinus pressure, blurry vision, diplopia Neck: No neck pain or rigidity. Cardiovascular: chest pain, orthopnea, palpitations Respiratory: No cough Gastrointestinal: no abdominal pain, hematochezia Genitourinary : no dysuria, frequency , hematuria Musculoskeletal: no muscle ache Integumentary: no rash, no pruritis Neurological: no parathesias, focal weakness Endocrine: no cold or heat intolerance, no polyuria or polydipsia Hematologic/Lymphatic: no easy bruising, no easy bleeding, no gland swelling Allergic/Immunologic: no urticaria, no angioedema. PAST MEDICAL HISTORY:CAD, heart failure, hypertension PAST SURGICAL HISTORY:CABG, FAMILY HISTORY:diabetes, hypertension SOCIAL HISTORY: Denies alcohol, tobacco, drugs Medications and Allergies Allergies Allergy/AdvReac Type Severity Reaction Status Date / Time No Known Allergies Allergy Verified 05/03/15 03:02 Home Medications Medication Instructions Recorded Confirmed Last Taken Type Metoprolol Xl [Metoprolol 25 mg PO QDAY 07/24/17 07/24/17 Unknown History SUCCINATE ER TAB] Omeprazole 20 mg PO DAILY 07/24/17 07/24/17 Unknown History Rosuvastatin Calcium 20 mg PO DAILY 07/24/17 07/24/17 Unknown History Umeclidinium Brm/Vilanterol Tr 62.5 mcg PO DAILY 07/24/17 07/24/17 Unknown History [Anoro Ellipta 62.5-25 Mcg INH] Active Meds: Active Medications Acetaminophen (Tylenol) 650 mg PO Q4H PRN PRN Reason: Pain MILD(1-3)/Fever >100.5/WHITE Bisacodyl (Dulcolax) 10 mg NM QDAY PRN PRN Reason: Constipation unrelieved by MOM Enoxaparin Sodium (Lovenox) 30 mg SUB-Q QDAY KURTIS Magnesium Hydroxide (Milk Of Magnesia) 30 ml PO Q4H PRN PRN Reason: Constipation Methylprednisolone Sodium Succinate (Solu-Medrol) 60 mg IV Q8H KURTIS Last Admin: 07/24/17 06:10 Dose: 60 mg Ondansetron HCl (Zofran) 4 mg IV Q8H PRN PRN Reason: N/V unrelieved by Reglan Oxycodone/Acetaminophen (Percocet 5/325) 1 tab PO Q6H PRN PRN Reason: Pain, Moderate (4-6) Exam - Constitutional Vitals: Temp Pulse Resp BP Pulse Ox 97.6 F 95 H 24 146/95 98 07/24/17 03:25 07/24/17 04:30 07/24/17 04:30 07/24/17 04:30 07/24/17 04:30 Results - Labs CBC & Chem 7: 07/24/17 01:57 07/24/17 01:57 Labs: Abnormal lab results 07/24/17 07/24/17 Range/Units 01:57 01:57 RBC 5.18 H (3.65-5.03) M/mm3 Hgb 15.0 H (10.1-14.3) gm/dl Hct 46.2 H (30.3-42.9) % RDW 15.7 H (13.2-15.2) % Cross % (Auto) 11.2 H (0.0-7.3) % Cross # 0.9 H (0.0-0.8) K/mm3 BUN 23 H (7-17) mg/dL Glucose 105 H (65-100) mg/dL Assessment and Plan Assessment Allergic pneumonitis hypertension hyperlipidemia CAD heart failure Plan Admit to medicine Start steroids, nebulizer treatments Continue appropriate outpatient medications DVT prophylaxis
[2017-07-24] MEDS ORDERED: LOVENOX SUB-Q SCH (10:00)
[2017-07-24] MEDS: LOVENOX SUB-Q SCH (10:33)
--- NOTE | 2017-07-24 12:45 | Event Note ---
Date: 07/24/17 Patient was seen and examined. Patient admitted past midnight today. Patient states the oxygen and nebulizer treatment are really helping and she wants oxygen at home. Patient thinks recent mold instillation is causing her breathing problems I believe her main issue is acute exacerbation of COPD maybe related to allergic pneumonitis/mold no heart failure though, cxr wasn't read as overload, no proBNP was measured
[2017-07-25 06:51] LABS: Basophils % (Auto) 0.1 % (0.0-1.8); Hematocrit 45.3 % (30.3-42.9); Hemoglobin 14.8 gm/dl (10.1-14.3); Mean Corpuscular HGB Conc 33 % (30-34); Mean Corpuscular Hemoglobin 29 pg (28-32); Mean Corpuscular Volume 89 fl (79-97); Platelet Count 250 K/mm3 (140-440); Red Blood Count 5.12 M/mm3 (3.65-5.03); Red Cell Distribution Width 15.5 % (13.2-15.2); White Blood Count 13.2 K/mm3 (4.5-11.0)
[2017-07-25 06:58] LABS: Anion Gap 18 mmol/L; BUN/Creatinine Ratio 24; Blood Urea Nitrogen 22 mg/dL (7-17); Calcium 9.4 mg/dL (8.4-10.2); Carbon Dioxide 25 mmol/L (22-30); Chloride 101.4 mmol/L (98-107); Glucose 154 mg/dL (65-100); Potassium 4.5 mmol/L (3.6-5.0); Sodium 140 mmol/L (137-145)
[2017-07-25 09:34] VITALS: BP 142/104
[2017-07-25] MEDS: LOVENOX SUB-Q SCH (10:03)
--- NOTE | 2017-07-25 13:14 | Discharge Summary ---
Providers - Providers Date of Admission: 07/24/17 05:48 Date of discharge: 07/25/17 Attending physician: KESHIA MONTGOMERY Primary care physician: [employer] Hospitalization Condition: Stable Hospital course: Patient 66-year-old woman with history of coronary artery disease, ME status post CABG, ischemic cardiomyopathy, hypertension, CHF, dyslipidemia, peripheral vascular disease and stroke who presented with shortness of breath after suspected exposure to mold in her home, chest x-ray reported as mild cardiomegaly there is no acute lung disease. Patient o2 weaned off, she is asking to go home. She has left AMA from here in the past. -Bronchospasm/reactive airway disorder with suspected Allergic pneumoniits: discussed the treat is avoidance of allergen -HTN: stable -Chronic systolic heart failure, not acute Disposition: DC-01 TO HOME OR SELFCARE Time spent for discharge: 35 minutes Core Measure Documentation - Palliative Care Palliative Care/ Comfort Measures: Not Applicable - Core Measures Any of the following diagnoses?: none - VTE Discharge Requirements Deep Vein Thrombosis/Pulmonary Embolism Present on Admission: No Has pt received <5 days of overlap therapy or INR<2.0: No Anticoagulant overlap therapy prescribed at discharge: No Contraindication No Overlap Therapy order at DC: Not Indicated Exam - Physical Exam Narrative exam: GEN: thin frail, NAD, AWAKE, ALERT, ORIENTATED x 3 HEENT: NCAT, EOMI, PERRL, OP Clear NECK: supple, no adenopathy, no thyromegaly, no JVD CVS/HEART: RRR, NORMAL S1S2, NO JVD, pulses present bilaterally CHEST/LUNGS: CTA B, Symmetrical chest expansion, good air entry bilaterally GI/Abdomen: soft, NTND, good bowel sounds, no guarding or rebound /Bladder: no suprapubic tenderness, no CVA or paraspinal tenderness EXT/Skin: no c/c/e, no obvious rash MSK: FROM x 4 Neuro: CN 2-12 grossly intact, no new focal deficits Psych: calm - Constitutional Vitals: Temp Pulse Resp BP Pulse Ox 98.8 F 92 H 18 142/104 99 07/25/17 08:36 07/25/17 08:36 07/25/17 08:36 07/25/17 08:36 07/25/17 08:36 Plan Activity: other (no strenous activity until cleared by pcp) Diet: low salt Additional Instructions: See Dr. Avina to evaluate for COPD. See [facility] for allergy testing, Dr. Fabrizio Woodward [phone] or speak with your pcp Follow up with: PRIMARY CARE, [Primary Care Provider] - 3-5 Days LOUISE AVINA MD [Staff Physician] - 7 Days Prescriptions: Famotidine [Pepcid] 20 mg PO BID #5 day Loratadine [Claritin] 10 mg PO DAILY #30 tablet methylPREDNISolone [Medrol Dose Foster] 1 dose PO DAILY #1 pack
== END 2017-07-25 16:00 | disposition home or self-care (01) | DRG 197 ==
LOC: ED 01:16 → 3A 05:48
PROVIDERS: ADMIT Internal Medicine; ATTEND Internal Medicine
DX: J67.9 Hypersensitivity pneumonitis due to unspecified organic dust (principal); I50.22 Chronic systolic (congestive) heart failure; J44.1 Chronic obstructive pulmonary disease with (acute) exacerbation; I25.10 Atherosclerotic heart disease of native coronary artery without angina pectoris; E78.5 Hyperlipidemia, unspecified; I25.5 Ischemic cardiomyopathy; I11.0 Hypertensive heart disease with heart failure; I73.9 Peripheral vascular disease, unspecified; J98.01 Acute bronchospasm; I25.2 Old myocardial infarction; Z95.1 Presence of aortocoronary bypass graft; Z86.73 Personal history of transient ischemic attack (TIA), and cerebral infarction without residual deficits; Z79.82 Long term (current) use of aspirin; Z79.899 Other long term (current) drug therapy; Z82.49 Family history of ischemic heart disease and other diseases of the circulatory system; Z83.3 Family history of diabetes mellitus
CPT/HCPCS: 36415; 71020; 80048; 82962; 84484; 85025; 93005; 93010; 99285; J1650; J2920

== ENCOUNTER 2017-07-29 04:00 | Emergency (ER) | payer MEDICARE ==
--- NOTE | 2017-07-29 06:28 | XRay Report ---
FINAL REPORT EXAM: XR CHEST ROUTINE 2V HISTORY: Shortness of breath TECHNIQUE: PA and lateral chest radiographs PRIORS: 07/24/2017 FINDINGS: No mediastinal shift. Cardiac silhouette is mildly enlarged. Overlying sternotomy wires. No pneumothorax, effusion, or focal pulmonary opacity. No acute skeletal finding. IMPRESSION: No acute pulmonary finding.
[2017-07-29 06:59] VITALS: BP 141/105
== END 2017-07-29 08:19 | disposition left against medical advice (07) ==
LOC: ED 04:00
DX: R06.00 Dyspnea, unspecified (principal); Z53.21 Procedure and treatment not carried out due to patient leaving prior to being seen by health care provider
CPT/HCPCS: 71020; 93005; 93010

== ENCOUNTER 2017-08-03 01:02 | Emergency (ER) | payer MEDICARE ==
[2017-08-03 01:48] LABS: Basophils % (Auto) 0.6 % (0.0-1.8); Eosinophils % (Auto) 1.5 % (0.0-4.3); Hematocrit 47.8 % (30.3-42.9); Hemoglobin 15.9 gm/dl (10.1-14.3); Mean Corpuscular HGB Conc 33 % (30-34); Mean Corpuscular Hemoglobin 29 pg (28-32); Mean Corpuscular Volume 87 fl (79-97); Platelet Count 222 K/mm3 (140-440); Red Blood Count 5.49 M/mm3 (3.65-5.03); Red Cell Distribution Width 15.7 % (13.2-15.2); White Blood Count 10.6 K/mm3 (4.5-11.0)
[2017-08-03 02:04] LABS: Anion Gap 19 mmol/L; BUN/Creatinine Ratio 19; Blood Urea Nitrogen 21 mg/dL (7-17); Calcium 9.3 mg/dL (8.4-10.2); Carbon Dioxide 26 mmol/L (22-30); Glucose 112 mg/dL (65-100); Potassium 3.9 mmol/L (3.6-5.0); Sodium 139 mmol/L (137-145)
--- NOTE | 2017-08-03 07:29 | XRay Report ---
ROUTINE CHEST, TWO VIEWS: HISTORY: Shortness of breath. Compared to 07/29/17. Mild cardiomegaly, mild pulmonary venous congestion and trace left pleural effusion are unchanged. The lungs are clear. No pneumothorax is appreciated. CABG changes are noted. The bony structures are grossly intact. IMPRESSION: Mild CHF.
[2017-08-03] MEDS ORDERED: LASIX IV ONE (09:16)
[2017-08-03] MEDS ORDERED: TYLENOL PO ONE (09:16)
[2017-08-03] MEDS ORDERED: PEPCID IV ONE (09:16)
--- NOTE | 2017-08-03 09:17 | Emergency Department Report ---
ED General Adult HPI - General Chief complaint: Dyspnea/Respdistress Stated complaint: SHORT BREATH Time Seen by Provider: 08/03/17 09:05 Source: patient, RN notes reviewed, old records reviewed Mode of arrival: Ambulatory Limitations: No Limitations - History of Present Illness Initial comments: This is a 66-year-old male who is previously unknown to this provider. 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 Patient admitted to the hospital July 2017 for decompensated congestive heart failure, was seen in consultation with cardiology who recommended a catheterization, which the patient subsequently refused. She indicated that she would follow up at another hospital and has not done so. The patient presents to the ER today with a complaint of shortness of breath. It started last night. It is constant. It worsens with physical exertion. It decreases with rest. Patient also endorses epigastric pain and abdominal pain. This has been going on for 3 months. It increases with palpation and decreases when she eats. It does not radiate anywhere. Patient denies dietary indiscretions, patient is not sure if she is taking any water pill. -: Gradual Location: abdomen Radiation: non-radiation Severity scale (0 -10): 6 Quality: aching Consistency: intermittent Improves with: rest Worsens with: movement Associated Symptoms: shortness of breath. denies: chest pain - Related Data Home Medications Medication Instructions Recorded Confirmed Last Taken Metoprolol Xl [Metoprolol 25 mg PO QDAY 07/24/17 08/03/17 Unknown SUCCINATE ER TAB] Omeprazole 20 mg PO DAILY 07/24/17 08/03/17 Unknown Previous Rx's Medication Instructions Recorded Last Taken Type Acetaminophen [Tylenol Arthritis] 650 mg PO Q6HR PRN #20 tablet.er 08/03/17 Unknown Rx Ciprofloxacin HCl [Cipro] 500 mg PO BID #10 tablet 08/03/17 Unknown Rx Furosemide [Lasix] 20 mg PO QDAY #30 tablet 08/03/17 Unknown Rx Metoclopramide [Reglan] 10 mg PO QID PRN #20 tab 08/03/17 Unknown Rx metroNIDAZOLE [Flagyl] 500 mg PO Q8HR #15 tablet 08/03/17 Unknown Rx hydrOXYzine HCL [Atarax] 25 mg PO Q6HR PRN #10 tablet 08/04/17 Unknown Rx Allergies Allergy/AdvReac Type Severity Reaction Status Date / Time No Known Allergies Allergy Verified 05/03/15 03:02 ED Review of Systems ROS: Stated complaint: SHORT BREATH Other details as noted in HPI Constitutional: denies: diaphoresis, fever, malaise Eyes: denies: eye discharge ENT: congestion Respiratory: cough, shortness of breath Cardiovascular: denies: chest pain Gastrointestinal: denies: vomiting Genitourinary: as per HPI Musculoskeletal: as per HPI Skin: as per HPI Neurological: as per HPI Psychiatric: as per HPI ED Past Medical Hx - Past Medical History Previous Medical History?: Yes Hx Hypertension: Yes Hx Heart Attack/AMI: Yes Hx Congestive Heart Failure: No Hx Diabetes: No Hx Asthma: No Hx COPD: No - Surgical History Past Surgical History?: Yes Hx Open Heart Surgery: Yes Additional Surgical History: triple bypass, - Social History Smoking Status: Never Smoker Substance Use Type: None - Medications Home Medications: Home Medications Medication Instructions Recorded Confirmed Last Taken Type Metoprolol Xl [Metoprolol 25 mg PO QDAY 07/24/17 08/03/17 Unknown History SUCCINATE ER TAB] Omeprazole 20 mg PO DAILY 07/24/17 08/03/17 Unknown History Acetaminophen [Tylenol Arthritis] 650 mg PO Q6HR PRN #20 tablet.er 08/03/17 Unknown Rx Ciprofloxacin HCl [Cipro] 500 mg PO BID #10 tablet 08/03/17 Unknown Rx Furosemide [Lasix] 20 mg PO QDAY #30 tablet 08/03/17 Unknown Rx Metoclopramide [Reglan] 10 mg PO QID PRN #20 tab 08/03/17 Unknown Rx metroNIDAZOLE [Flagyl] 500 mg PO Q8HR #15 tablet 08/03/17 Unknown Rx hydrOXYzine HCL [Atarax] 25 mg PO Q6HR PRN #10 tablet 08/04/17 Unknown Rx ED Physical Exam - General Limitations: No Limitations General appearance: alert, in no apparent distress - Head Head exam: Present: atraumatic, normocephalic - Eye Eye exam: Present: normal appearance, EOMI. Absent: nystagmus - ENT ENT exam: Present: normal exam, normal orophraynx, mucous membranes moist, normal external ear exam - Neck Neck exam: Present: normal inspection, full ROM. Absent: tenderness, meningismus - Respiratory Respiratory exam: Present: normal lung sounds bilaterally. Absent: respiratory distress - Cardiovascular Cardiovascular Exam: Present: normal rhythm, tachycardia, normal heart sounds. Absent: systolic murmur, diastolic murmur, rubs, gallop - GI/Abdominal GI/Abdominal exam: Present: soft, tenderness, normal bowel sounds, other (there is epigastric tenderness. There is midabdominal tenderness.). Absent: distended, guarding, rebound, rigid, pulsatile mass - Extremities Exam Extremities exam: Present: normal inspection, full ROM, normal capillary refill , pedal edema (1+ pitting edema in the lower extremities). Absent: calf tenderness - Back Exam Back exam: Present: normal inspection, full ROM. Absent: paraspinal tenderness , vertebral tenderness - Neurological Exam Neurological exam: Present: alert, oriented X3, normal gait, other (Extraocular movements intact. Tongue midline. No facial droop. Facial sensation intact to light touch in the V1, V2, V3 distribution bilaterally. 5 and 5 strength in 4 extremities.. Sensation is intact to light touch in 4 extremities.). Absent : motor sensory deficit - Psychiatric Psychiatric exam: Present: normal affect, normal mood - Skin Skin exam: Present: warm, dry, intact, normal color. Absent: rash ED Course Vital Signs 08/03/17 08/03/17 08/03/17 01:08 01:13 04:58 Temperature 97.6 F 97.6 F Pulse Rate 105 H 101 H 83 Respiratory 18 18 19 Rate Blood Pressure 133/94 Blood Pressure 133/94 [Left] O2 Sat by Pulse 100 100 Oximetry 08/03/17 08/03/17 08/03/17 05:00 05:31 06:01 Temperature Pulse Rate 89 94 H 96 H Respiratory 18 21 16 Rate Blood Pressure 145/82 125/84 Blood Pressure [Left] O2 Sat by Pulse Oximetry 08/03/17 08/03/17 08/03/17 06:31 07:00 08:00 Temperature 97.5 F L Pulse Rate 107 H 100 H 88 Respiratory 26 H 14 18 Rate Blood Pressure 136/92 128/93 Blood Pressure 122/93 [Left] O2 Sat by Pulse 100 Oximetry 08/03/17 11:38 Temperature Pulse Rate 86 Respiratory 16 Rate Blood Pressure Blood Pressure 141/97 [Left] O2 Sat by Pulse 97 Oximetry - Reevaluation(s) Reevaluation #1: 08/03/17 09:23 Differential diagnosis, including but not limited to: Hiatal hernia, GERD, gastritis, pancreatitis, IVC thrombosis, pulmonary embolus, congestive heart failure, pneumonitis, pneumonia, asthma Assessment and plan: 66-year-old female with a primary complaint of shortness of breath. She is afebrile with reassuring vital signs, her tachycardia has resolved, and when I walk into the room the patient is sleeping comfortably. She's been having epigastric pain for 3 months, she is somewhat tender, so CT scan of the abdomen and pelvis is ordered. From a cardiac/congestive heart failure perspective, the patient is not hypoxic, she does not have crackles, she does not have rales, he does not appear to have acute decompensated congestive heart failure. I appreciate a cardiology recently recommended a cardiac catheterization, this was almost 3 weeks ago, the patient has failed to follow-up. I will discuss with cardiology. CT scan of the chest is ordered as well, although I doubt pulmonary embolus, the patient had an essentially negative CT scan of the chest a few weeks ago. Reevaluation #2: 08/03/17 11:11 CT scan of the abdomen and pelvis demonstrates minimal pleural effusions, descending colonic diverticulitis. CT scan of the chest is pending. Case presented to cardiology on-call, Lisseth herman. Patient is given a follow-up appointment tomorrow, August 04, at 1:40 PM, with Dr. Chanel, at the local office Given that patient has been given closely arranged outpatient follow-up, given that she does not appear to be acutely decompensated congestive heart failure standpoint, patient will be discharged. She will be given a short course of antibiotic therapy for her presumed diverticulitis, and instructed to follow up with outpatient gastroenterology. Reevaluation #3: 08/03/17 11:24 CT scan of the chest was negative for pneumonia, large pleural effusion, or pulmonary embolus. Patient saturating well and resting currently. Repeat pulmonary exam is unremarkable. She is not wheezing she does not have rales or crackles. She is medically suitable follow-up with outpatient cardiology. ED Medical Decision Making - Lab Data Result diagrams: 08/03/17 01:25 08/03/17 01:25 Vital Signs 08/03/17 08/03/17 08/03/17 01:08 01:13 04:58 Temperature 97.6 F 97.6 F Pulse Rate 105 H 101 H 83 Respiratory 18 18 19 Rate Blood Pressure 133/94 Blood Pressure 133/94 [Left] O2 Sat by Pulse 100 100 Oximetry 08/03/17 08/03/17 08/03/17 05:00 05:31 06:01 Temperature Pulse Rate 89 94 H 96 H Respiratory 18 21 16 Rate Blood Pressure 145/82 125/84 Blood Pressure [Left] O2 Sat by Pulse Oximetry 08/03/17 08/03/17 08/03/17 06:31 07:00 08:00 Temperature 97.5 F L Pulse Rate 107 H 100 H 88 Respiratory 26 H 14 18 Rate Blood Pressure 136/92 128/93 Blood Pressure 122/93 [Left] O2 Sat by Pulse 100 Oximetry Lab Results 08/03/17 08/03/17 Range/Units 01:25 01:25 WBC 10.6 (4.5-11.0) K/mm3 RBC 5.49 H (3.65-5.03) M/mm3 Hgb 15.9 H (10.1-14.3) gm/dl Hct 47.8 H (30.3-42.9) % MCV 87 (79-97) fl MCH 29 (28-32) pg MCHC 33 (30-34) % RDW 15.7 H (13.2-15.2) % Plt Count 222 (140-440) K/mm3 Lymph % (Auto) 28.0 (13.4-35.0) % [place] % (Auto) 9.4 H (0.0-7.3) % Eos % (Auto) 1.5 (0.0-4.3) % Baso % (Auto) 0.6 (0.0-1.8) % Lymph # 3.0 (1.2-5.4) K/mm3 [place] # 1.0 H (0.0-0.8) K/mm3 Eos # 0.2 (0.0-0.4) K/mm3 Baso # 0.1 (0.0-0.1) K/mm3 Seg Neutrophils % 60.5 (40.0-70.0) % Seg Neutrophils # 6.4 (1.8-7.7) K/mm3 Sodium 139 (137-145) mmol/L Potassium 3.9 (3.6-5.0) mmol/L Chloride 98.0 (98-107) mmol/L Carbon Dioxide 26 (22-30) mmol/L Anion Gap 19 mmol/L BUN 21 H (7-17) mg/dL Creatinine 1.1 (0.7-1.2) mg/dL Estimated GFR > 60 ml/min BUN/Creatinine Ratio 19 % Glucose 112 H (65-100) mg/dL Calcium 9.3 (8.4-10.2) mg/dL Troponin T < 0.010 (0.00-0.029) ng/mL - EKG Data -: EKG Interpreted by Me - EKG Data 08/03/17 10:45 Normal sinus, 87 bpm, left ventricular hypertrophy, normal axis, premature ventricular contractions, QTC prolonged, abnormal EKG, not morphologically consistent with ST elevation infarction appears unchanged from prior. - Radiology Data Radiology results: report reviewed, image reviewed X-ray of the chest demonstrates cardiomegaly, median sternotomy, small left- sided pleural effusion. Mild congestive heart failure, mild pulmonary vascular congestion Critical care attestation.: If time is entered above; I have spent that time in minutes in the direct care of this critically ill patient, excluding procedure time. ED Disposition Clinical Impression: Shortness of breath, Abdominal pain Disposition: DC-01 TO HOME OR SELFCARE Is pt being admited?: No Does the pt Need Aspirin: No Condition: Stable Instructions: Heart Failure (ED), Diverticulitis (ED) Additional Instructions: Take the Lasix water pill as recommended/directed. Follow up with cardiology tomorrow, August 04, 1:40 PM, with Dr. Darrion Chanel at the listed location. CT scan of the abdomen and pelvis demonstrated inflammation of the descending colon. Take antibiotic therapy as directed, take the pain medication as needed/ directed, take nausea medication as needed/directed. 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 [facility] is a local gastroenterology practice. Not following up as recommended with gastroenterology may resultant undiagnosed tumor, cancer, malignancy. Avoid alcohol consumption for the next month. Return to the ER right away with new pain, worsening pain, migration of pain, fevers, chills, lethargy, irritability , projectile vomiting, confusion, change in mental status, inability to tolerate liquid feeds. Prescriptions: Acetaminophen [Tylenol Arthritis] 650 mg PO Q6HR PRN #20 tablet.er PRN Reason: Pain Ciprofloxacin HCl [Cipro] 500 mg PO BID #10 tablet Furosemide [Lasix] 20 mg PO QDAY #30 tablet Metoclopramide [Reglan] 10 mg PO QID PRN #20 tab PRN Reason: Nausea metroNIDAZOLE [Flagyl] 500 mg PO Q8HR #15 tablet Referrals: PRIMARY CAREMD [Primary Care Provider] - 3-5 Days ISRA NESS MD [Staff Physician] - 3-5 Days DARRION CHANEL MD [Staff Physician] - 3-5 Days [facility] [Provider Group] - 3-5 Days
[2017-08-03 10:15] LABS: Bilirubin,Urine NEG (Negative); Blood,Urine NEG (Negative); Ketones,Urine NEG (Negative); Leukocyte Esterase,Urine NEG (Negative); Nitrite,Urine NEG (Negative); Protein,Urine <15 mg/dL mg/dL (Negative); Urobilinogen,Urine < 2.0 mg/dL (<2.0); WBC,Urine < 1.0 /HPF (0.0-6.0)
--- NOTE | 2017-08-03 10:54 | Cat Scan Report ---
CT ABDOMEN PELVIS WITH CONTRAST: HISTORY: abdominal pain. COMPARISON: none. TECHNIQUE: Helical CT in 1.25mm intervals following IV contrast. Sagittal and coronal reconstructions. FINDINGS: Lung bases: Mild cardiomegaly, trace right pleural effusion and small left pleural effusion. The visualized lung bases are well aerated. Liver: normal. Biliary system: normal. Pancreas: normal. Spleen: normal. Kidneys/ureters/bladder: There is mild cortical thinning in both kidneys. No focal renal lesion or hydronephrosis. The ureters and bladder are unremarkable. Adrenal glands: normal. Aorta: There are moderate atherosclerotic plaques but no aneurysm. Intestines: Limited given no oral contrast was administered. There are scattered diverticula in the distal colon. There appears to be a focus of inflammation in the mid descending colon suspicious for acute diverticulitis. No abscess or free air. Appendix: normal. Pelvic viscera: Few small calcified uterine fibroids are identified. No adnexal mass or large cyst. Musculoskeletal: Mild osteoarthritic changes. No fracture or suspicious bony lesion. IMPRESSION: Acute descending colon diverticulitis. Mild CHF. Mild uterine fibroid disease. Mild chronic renal parenchymal disease.
--- NOTE | 2017-08-03 11:18 | Cat Scan Report ---
CTA CHEST: HISTORY: Dyspnea. COMPARISON: none. TECHNIQUE: Helical CT in 1.25mm intervals following IV contrast. Pulmonary embolus protocol. Sagittal and coronal reformatted images. Rotational MIP images. FINDINGS: Contrast bolus is satisfactory. No pulmonary embolus is identified. Thyroid gland: Normal. Tracheobronchial tree: Normal. Esophagus: Normal. Heart: Mild cardiomegaly. No pericardial effusion. Pericardium: Normal. Mediastinum: Normal. Lung Romero: normal. Pleural Spaces: Trace right pleural effusion. Small layering left pleural effusion. Musculoskeletal: Normal. IMPRESSION: No evidence for pulmonary embolus. Mild CHF.
[2017-08-03 11:39] VITALS: BP 141/97
== END 2017-08-03 11:45 | disposition home or self-care (01) ==
LOC: ED 01:02
DX: R06.02 Shortness of breath (principal); R10.13 Epigastric pain; I10 Essential (primary) hypertension; I25.2 Old myocardial infarction; Z98.890 Other specified postprocedural states
CPT/HCPCS: 36415; 71020; 71275; 74177; 80048; 81001; 83880; 84484; 85025; 93005; 93010; 96374; 96375; 99285; J1940; Q9967

== ENCOUNTER 2017-08-03 21:02 | Emergency (ER) | payer MEDICARE ==
[2017-08-03 22:12] LABS: Basophils % (Auto) 0.7 % (0.0-1.8); Eosinophils % (Auto) 1.6 % (0.0-4.3); Hematocrit 46.6 % (30.3-42.9); Hemoglobin 14.9 gm/dl (10.1-14.3); Mean Corpuscular HGB Conc 32 % (30-34); Mean Corpuscular Hemoglobin 28 pg (28-32); Mean Corpuscular Volume 88 fl (79-97); Platelet Count 221 K/mm3 (140-440); Red Blood Count 5.27 M/mm3 (3.65-5.03); Red Cell Distribution Width 15.9 % (13.2-15.2); White Blood Count 10.2 K/mm3 (4.5-11.0)
[2017-08-03 22:54] LABS: Anion Gap 21 mmol/L; BUN/Creatinine Ratio 16; Blood Urea Nitrogen 19 mg/dL (7-17); Calcium 9.1 mg/dL (8.4-10.2); Carbon Dioxide 25 mmol/L (22-30); Chloride 97.3 mmol/L (98-107); Glucose 123 mg/dL (65-100); Potassium 3.9 mmol/L (3.6-5.0); Sodium 139 mmol/L (137-145)
--- NOTE | 2017-08-04 00:35 | Cat Scan Report ---
FINAL REPORT EXAM: CT HEAD/BRAIN WO CON HISTORY: dizziness and headache TECHNIQUE: Routine axial imaging was obtained of the brain without IV contrast. Comparison is made to the study of 02/23/2016. FINDINGS: There is mild generalized atrophy. There is a remote stroke in the left temporal lobe. There is no evidence of acute stroke or hemorrhage. There is a remote lacunar infarct in the left cerebellar hemisphere. The ventricular system is appropriate in size and is symmetric. The visualized sinuses are clear. The mastoid air cells are well pneumatized. IMPRESSION: Mild generalized atrophy. No evidence of acute stroke or hemorrhage. 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
[2017-08-04] MEDS ORDERED: NORMODYNE IV ONE (11:50)
--- NOTE | 2017-08-04 12:01 | Emergency Department Report ---
ED General Adult HPI - General Chief complaint: Dizziness Stated complaint: MH Time Seen by Provider: 08/04/17 11:37 Source: patient Mode of arrival: Ambulatory Limitations: No Limitations - History of Present Illness Initial comments: Patient presents to the emergency department with vague complaints. Does appear that her chief complaint is a nonproductive cough and left earache. She denies being on any mental health medications. She has an odd manner of expressing herself but certainly no suicidality. She is not depressed she is not homicidal she is not agitated and she is not hallucinating. At the time of my evaluation she really is not complaining of any dizziness or any specific symptoms. In fact she says "thank you Tj I hope I can go home now". She is oriented and evaluated by mental health. They concluded and I concur that she has no sensory 13 criteria. I don't think she has any active mental health process process either. -: Gradual, days(s) Location: left Radiation: non-radiation Severity scale (0 -10): 2 Quality: other (stuffy and dizziness) Consistency: other Improves with: none Worsens with: none Associated Symptoms: denies other symptoms Treatments Prior to Arrival: none - Related Data Home Medications Medication Instructions Recorded Confirmed Last Taken Metoprolol Xl [Metoprolol 25 mg PO QDAY 07/24/17 08/03/17 Unknown SUCCINATE ER TAB] Omeprazole 20 mg PO DAILY 07/24/17 08/03/17 Unknown Previous Rx's Medication Instructions Recorded Last Taken Type Acetaminophen [Tylenol Arthritis] 650 mg PO Q6HR PRN #20 tablet.er 08/03/17 Unknown Rx Ciprofloxacin HCl [Cipro] 500 mg PO BID #10 tablet 08/03/17 Unknown Rx Furosemide [Lasix] 20 mg PO QDAY #30 tablet 08/03/17 Unknown Rx Metoclopramide [Reglan] 10 mg PO QID PRN #20 tab 08/03/17 Unknown Rx metroNIDAZOLE [Flagyl] 500 mg PO Q8HR #15 tablet 08/03/17 Unknown Rx hydrOXYzine HCL [Atarax] 25 mg PO Q6HR PRN #10 tablet 08/04/17 Unknown Rx Allergies Allergy/AdvReac Type Severity Reaction Status Date / Time No Known Allergies Allergy Verified 05/03/15 03:02 ED Review of Systems ROS: Stated complaint: MH Other details as noted in HPI Constitutional: denies: chills, fever Eyes: denies: eye pain, eye discharge, vision change ENT: as per HPI, ear pain. denies: throat pain Respiratory: denies: cough, shortness of breath, wheezing Cardiovascular: denies: chest pain, palpitations Endocrine: no symptoms reported Gastrointestinal: denies: abdominal pain, nausea, diarrhea Genitourinary: denies: urgency, dysuria, discharge Musculoskeletal: denies: back pain, joint swelling, arthralgia Skin: denies: rash, lesions Neurological: denies: headache, weakness, numbness, paresthesias, confusion, abnormal gait Psychiatric: denies: anxiety, depression Hematological/Lymphatic: denies: easy bleeding, easy bruising ED Past Medical Hx - Past Medical History Previous Medical History?: Yes Hx Hypertension: Yes Hx Heart Attack/AMI: Yes Hx Congestive Heart Failure: No Hx Diabetes: No Hx Asthma: No Hx COPD: No - Surgical History Past Surgical History?: Yes Hx Open Heart Surgery: Yes Additional Surgical History: triple bypass, - Social History Smoking Status: Current Some Day Smoker - Medications Home Medications: Home Medications Medication Instructions Recorded Confirmed Last Taken Type Metoprolol Xl [Metoprolol 25 mg PO QDAY 07/24/17 08/03/17 Unknown History SUCCINATE ER TAB] Omeprazole 20 mg PO DAILY 07/24/17 08/03/17 Unknown History Acetaminophen [Tylenol Arthritis] 650 mg PO Q6HR PRN #20 tablet.er 08/03/17 Unknown Rx Ciprofloxacin HCl [Cipro] 500 mg PO BID #10 tablet 08/03/17 Unknown Rx Furosemide [Lasix] 20 mg PO QDAY #30 tablet 08/03/17 Unknown Rx Metoclopramide [Reglan] 10 mg PO QID PRN #20 tab 08/03/17 Unknown Rx metroNIDAZOLE [Flagyl] 500 mg PO Q8HR #15 tablet 08/03/17 Unknown Rx hydrOXYzine HCL [Atarax] 25 mg PO Q6HR PRN #10 tablet 08/04/17 Unknown Rx ED Physical Exam - General Limitations: No Limitations General appearance: alert, in no apparent distress - Head Head exam: Present: atraumatic, normocephalic - Eye Eye exam: Present: normal appearance, PERRL, EOMI. Absent: scleral icterus - ENT ENT exam: Present: mucous membranes moist. Absent: TM's normal bilaterally ( perhaps slight amount of fluid evident left TM but no signs of infection apparent. ) - Neck Neck exam: Present: normal inspection. Absent: tenderness, meningismus - Respiratory Respiratory exam: Present: normal lung sounds bilaterally. Absent: respiratory distress - Cardiovascular Cardiovascular Exam: Present: regular rate, normal rhythm. Absent: systolic murmur, diastolic murmur, rubs, gallop - GI/Abdominal GI/Abdominal exam: Present: soft, normal bowel sounds. Absent: distended, tenderness, guarding, rebound - Extremities Exam Extremities exam: Present: normal inspection - Back Exam Back exam: Present: normal inspection - Neurological Exam Neurological exam: Present: alert, oriented X3, CN II-XII intact, normal gait. Absent: motor sensory deficit - Psychiatric Psychiatric exam: Present: normal affect, normal mood - Skin Skin exam: Present: warm, dry, intact, normal color. Absent: rash ED Course Vital Signs 08/03/17 08/04/17 08/04/17 21:31 03:12 08:02 Temperature 97.5 F L 97.5 F L Pulse Rate 92 H 95 H 92 H Respiratory 18 18 18 Rate Blood Pressure 144/99 137/93 144/100 O2 Sat by Pulse 100 99 100 Oximetry 08/04/17 08/04/17 08:42 09:03 Temperature 98.6 F Pulse Rate Respiratory 20 Rate Blood Pressure O2 Sat by Pulse Oximetry - Reevaluation(s) Reevaluation #1: She was observed in the emergency department for some time. She was not agitated. She displayed no uncompensated mental health problems. She was seen by the counselor who concluded that she does have an odd way of expressing herself she did not need any sort of mental health stabilization. She will be given an antihistamine for perhaps serous otitis media and discharge to primary care follow-up. 08/04/17 14:03 ED Medical Decision Making - Lab Data Result diagrams: 08/03/17 21:49 08/03/17 21:49 Laboratory Results - last 24 hr 08/03/17 08/03/17 08/04/17 21:49 21:49 00:14 WBC 10.2 RBC 5.27 H Hgb 14.9 H Hct 46.6 H MCV 88 MCH 28 MCHC 32 RDW 15.9 H Plt Count 221 Lymph % (Auto) 28.8 [place] % (Auto) 11.1 H Eos % (Auto) 1.6 Baso % (Auto) 0.7 Lymph # 2.9 [place] # 1.1 H Eos # 0.2 Baso # 0.1 Seg Neutrophils % 57.8 Seg Neutrophils # 5.9 Sodium 139 Potassium 3.9 Chloride 97.3 L Carbon Dioxide 25 Anion Gap 21 BUN 19 H Creatinine 1.2 Estimated GFR 55 BUN/Creatinine Ratio 16 Glucose 123 H Calcium 9.1 Troponin T < 0.010 < 0.010 08/04/17 03:36 WBC RBC Hgb Hct MCV MCH MCHC RDW Plt Count Lymph % (Auto) [place] % (Auto) Eos % (Auto) Baso % (Auto) Lymph # [place] # Eos # Baso # Seg Neutrophils % Seg Neutrophils # Sodium Potassium Chloride Carbon Dioxide Anion Gap BUN Creatinine Estimated GFR BUN/Creatinine Ratio Glucose Calcium Troponin T < 0.010 - EKG Data -: EKG Interpreted by Me EKG shows normal: sinus rhythm, axis, intervals, QRS complexes - EKG Data Interpretation: LVH (LVH and left atrial enlargement typical associated repolarization abnormality serial EKGs without change) Critical care attestation.: If time is entered above; I have spent that time in minutes in the direct care of this critically ill patient, excluding procedure time. ED Disposition Clinical Impression: Serous otitis media Qualifiers: Chronicity: unspecified Laterality: left Qualified Code(s): H65.92 - Unspecified nonsuppurative otitis media, left ear URI (upper respiratory infection) Qualifiers: URI type: unspecified viral URI Qualified Code(s): J06.9 - Acute upper respiratory infection, unspecified; B97.89 - Other viral agents as the cause of diseases classified elsewhere; B97.89 - Other viral agents as the cause of diseases classified elsewhere Disposition: DC-01 TO HOME OR SELFCARE Is pt being admited?: No Does the pt Need Aspirin: No Condition: Stable Instructions: Upper Respiratory Infection (ED) Additional Instructions: Follow-up with a primary care provider or the [facility]. Atarax as needed for stuffiness or cold symptoms. Prescriptions: hydrOXYzine HCL [Atarax] 25 mg PO Q6HR PRN #10 tablet PRN Reason: Itching Referrals: PRIMARY CARE, [Primary Care Provider] - 3-5 Days [facility] [Provider Group] - 3-5 Days Time of Disposition: 14:10
[2017-08-04 13:01] LABS: INR 0.91 (0.87-1.13); Partial Thromboplastin Time 27.3 Sec. (24.2-36.6)
[2017-08-04 13:09] LABS: Creatine Kinase MB 1.8 ng/mL (0.0-4.0)
[2017-08-04 13:10] LABS: Albumin 3.8 g/dL (3.9-5); Albumin/Globulin Ratio 1.2 %; Bilirubin,Direct 0.2 mg/dL (0-0.2); Bilirubin,Indirect 0.5 mg/dL; Bilirubin,Total 0.7 mg/dL (0.1-1.2); Magnesium 2.2 mg/dL (1.7-2.3)
--- NOTE | 2017-08-04 13:11 | XRay Report ---
AP CHEST : 08/04/17 CLINICAL: Hypertension. COMPARISON:08/03/17 FINDINGS: Stable cardiomegaly. Redistribution of pulmonary blood flow to the upper lobes.The pulmonary vessels are more distinct than on the prior exam. The lungs are normally expanded and clear. Median sternotomy wires and mediastinal surgical clips. IMPRESSION: Interval improvement. Mild CHF with cardiomegaly and venous hypertension. No pulmonary edema.
[2017-08-04 14:13] VITALS: BP 128/95
== END 2017-08-04 15:23 | disposition home or self-care (01) ==
LOC: EEVIPCON 21:02 → ED 21:02
DX: H65.92 Unspecified nonsuppurative otitis media, left ear (principal); J06.9 Acute upper respiratory infection, unspecified; B97.89 Other viral agents as the cause of diseases classified elsewhere; I10 Essential (primary) hypertension; I25.2 Old myocardial infarction; F17.200 Nicotine dependence, unspecified, uncomplicated; Z98.890 Other specified postprocedural states
CPT/HCPCS: 36415; 70450; 71010; 80048; 80074; 82550; 82553; 83735; 83880; 84484; 85025; 85610; 85730; 87040; 87086; 93005; 93010; 96374

== ENCOUNTER 2017-10-16 21:27 | Emergency (ER) | payer MEDICARE ==
[2017-10-16 23:43] LABS: Basophils # (Auto) 0.1 K/mm3 (0.0-0.1); Basophils % (Auto) 0.5 % (0.0-1.8); Eosinophils # (Auto) 0.1 K/mm3 (0.0-0.4); Hemoglobin 13.6 gm/dl (10.1-14.3); Lymphocytes # (Auto) 1.2 K/mm3 (1.2-5.4); Lymphocytes % (Auto) 12.5 % (13.4-35.0); Mean Corpuscular HGB Conc 32 % (30-34); Mean Corpuscular Hemoglobin 27 pg (28-32); Mean Corpuscular Volume 84 fl (79-97); Monocytes # (Auto) 0.7 K/mm3 (0.0-0.8); Monocytes % (Auto) 7.5 % (0.0-7.3); Platelet Count 267 K/mm3 (140-440); Red Blood Count 4.99 M/mm3 (3.65-5.03); Red Cell Distribution Width 17.9 % (13.2-15.2)
[2017-10-17 00:01] LABS: Albumin 3.7 g/dL (3.9-5)
[2017-10-17 00:31] LABS: Calcium 9.3 mg/dL (8.4-10.2)
--- NOTE | 2017-10-17 05:45 | Cat Scan Report ---
FINAL REPORT PROCEDURE: CT HEAD/BRAIN WO CON TECHNIQUE: Computerized tomography of the head was performed without contrast material. HISTORY: head injury COMPARISON: No prior studies are available for comparison. FINDINGS: Skull and scalp: Normal. Paranasal sinuses: Normal. Ventricles and subarachnoid spaces: Normal. 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 Small old lacunar infarction in the upper left cerebellar hemisphere. No evidence of acute intracranial hemorrhage, hematoma or infarction. No midline displacement or mass.. Cerebellum and brainstem: No evidence of hemorrhage, acute infarction or mass. Vasculature: Normal. Comments: None. IMPRESSION: There is no evidence of an acute intracranial process. Previous infarction anterior left temporal lobe. Small old lacunar infarction upper left cerebellar hemisphere.
--- NOTE | 2017-10-17 06:15 | Emergency Department Report ---
ED General Adult HPI - General Chief complaint: Head Injury Stated complaint: MOLD EXPOSURE Time Seen by Provider: 10/17/17 06:09 Source: patient Mode of arrival: Ambulatory Limitations: Physical Limitation - History of Present Illness Initial comments: This is a patient with a dilated cardiomyopathy who presents to the emergency department with unclear complaints. She states that "my toes are swollen". I have seen this patient before and she has a strange affect. She tells me that she cannot return to her home, she has mold. I see that she has already been registered for case management recently but they were unable to make contact with her. Strangely the triage note states head injury. She is not complaining of chest pain or cough. She is not complaining of shortness of breath. She has had several workups here for shortness of breath. She is found to have an EF of 15-20%/dilated cardiomyopathy. She has recently had a negative ventilation perfusion scan to rule out PE. She is on Lasix lisinopril and metoprolol for hypertension as well as Atarax I presume for anxiety. -: unknown (very poor historian and not providing duration of symptoms) Quality: aching Consistency: constant Improves with: none Worsens with: none Associated Symptoms: denies other symptoms Treatments Prior to Arrival: none - Related Data Previous Rx's Medication Instructions Recorded Last Taken Type Aspirin EC [Aspirin Enteric Coated 81 mg PO QDAY #30 tablet. 09/28/17 Unknown Rx TAB] AtorvaSTATin [Lipitor] 40 mg PO QHS #30 tab 09/28/17 Unknown Rx Furosemide [Lasix] 20 mg PO QDAY #30 tablet 09/28/17 Unknown Rx Levofloxacin [Levaquin TAB] 750 mg PO Q24HR #7 tablet 09/28/17 Unknown Rx Lisinopril [Zestril TAB] 5 mg PO QDAY #30 tablet 09/28/17 Unknown Rx Metoclopramide [Reglan TAB] 10 mg PO QID PRN #20 tab 09/28/17 Unknown Rx Metoprolol Xl [Metoprolol 25 mg PO QDAY #30 tablet 09/28/17 Unknown Rx SUCCINATE ER TAB] Omeprazole 20 mg PO DAILY #30 capsule. 09/28/17 Unknown Rx hydrOXYzine HCL [Atarax] 25 mg PO Q6HR PRN #10 tablet 01/29/18 Unknown Rx Allergies Allergy/AdvReac Type Severity Reaction Status Date / Time No Known Allergies Allergy Verified 05/03/15 03:02 ED Review of Systems ROS: Stated complaint: MOLD EXPOSURE Other details as noted in HPI Constitutional: denies: chills, fever Eyes: denies: eye pain, eye discharge, vision change ENT: denies: ear pain, throat pain Respiratory: denies: cough, shortness of breath, wheezing Cardiovascular: denies: chest pain, palpitations Endocrine: no symptoms reported Gastrointestinal: denies: abdominal pain, nausea, diarrhea Genitourinary: denies: urgency, dysuria, discharge Musculoskeletal: denies: back pain, joint swelling, arthralgia Skin: denies: rash, lesions Neurological: denies: headache, weakness, paresthesias Psychiatric: denies: anxiety, depression Hematological/Lymphatic: denies: easy bleeding, easy bruising ED Past Medical Hx - Past Medical History Previous Medical History?: Yes Hx Hypertension: Yes Hx Heart Attack/AMI: Yes Hx Congestive Heart Failure: Yes Hx Diabetes: No Hx Asthma: No Hx COPD: No - Surgical History Hx Open Heart Surgery: Yes Hx Pacemaker: Yes (L chest area) Additional Surgical History: triple bypass, - Social History Smoking Status: Never Smoker Substance Use Type: None - Medications Home Medications: Home Medications Medication Instructions Recorded Confirmed Last Taken Type Aspirin EC [Aspirin Enteric Coated 81 mg PO QDAY #30 tablet. 09/28/17 Unknown Rx TAB] AtorvaSTATin [Lipitor] 40 mg PO QHS #30 tab 09/28/17 Unknown Rx Furosemide [Lasix] 20 mg PO QDAY #30 tablet 09/28/17 Unknown Rx Levofloxacin [Levaquin TAB] 750 mg PO Q24HR #7 tablet 09/28/17 Unknown Rx Lisinopril [Zestril TAB] 5 mg PO QDAY #30 tablet 09/28/17 Unknown Rx Metoclopramide [Reglan TAB] 10 mg PO QID PRN #20 tab 09/28/17 Unknown Rx Metoprolol Xl [Metoprolol 25 mg PO QDAY #30 tablet 09/28/17 Unknown Rx SUCCINATE ER TAB] Omeprazole 20 mg PO DAILY #30 capsule. 09/28/17 Unknown Rx hydrOXYzine HCL [Atarax] 25 mg PO Q6HR PRN #10 tablet 09/28/17 Unknown Rx ED Physical Exam - General Limitations: Physical Limitation General appearance: alert, in no apparent distress - Head Head exam: Present: atraumatic, normocephalic - Eye Eye exam: Present: normal appearance. Absent: PERRL, EOMI, scleral icterus - ENT ENT exam: Present: mucous membranes moist - Neck Neck exam: Present: normal inspection. Absent: tenderness, meningismus - Respiratory Respiratory exam: Present: normal lung sounds bilaterally. Absent: respiratory distress - Cardiovascular Cardiovascular Exam: Present: regular rate, normal rhythm. Absent: systolic murmur, diastolic murmur, rubs, gallop - GI/Abdominal GI/Abdominal exam: Present: soft, normal bowel sounds. Absent: distended, tenderness, guarding, rebound, rigid - Extremities Exam Extremities exam: Present: normal inspection. Absent: pedal edema, joint swelling, calf tenderness - Back Exam Back exam: Present: normal inspection. Absent: CVA tenderness (R), CVA tenderness (L) - Neurological Exam Neurological exam: Present: alert, oriented X3, CN II-XII intact. Absent: motor sensory deficit - Psychiatric Psychiatric exam: Present: normal mood, flat affect - Skin Skin exam: Present: warm, dry, intact, normal color. Absent: rash ED Course Vital Signs 10/16/17 10/17/17 10/17/17 23:10 05:12 06:30 Temperature 97.4 F L 97.5 F L Pulse Rate 59 L 99 H Respiratory 18 23 Rate Blood Pressure 111/79 124/93 Blood Pressure 124/93 [Left] O2 Sat by Pulse 94 74 L 95 Oximetry 10/17/17 10/17/17 06:32 08:44 Temperature Pulse Rate 103 H Respiratory 23 20 Rate Blood Pressure Blood Pressure 136/99 [Left] O2 Sat by Pulse 95 95 Oximetry - Reevaluation(s) Reevaluation #1: The patient is to be a bit prerenal. Her pulse oximetry is 100% on room air. I will give her some controlled IV fluid and check her chest x-ray. She does need case management. 10/17/17 07:13 Reevaluation #2: Patient observed and really questioned concerning the reason she presented. She now states that she fell down at an unknown store on [address] yesterday. She complains of pain in her right elbow and left foot. She states that she hit her head but "that's all right". She did not have a loss of consciousness. She states that she tripped. She will be sent for x-rays of her foot and elbow there is 1-2+ pedal edema bilaterally. There is tenderness on palpation of the left foot and right elbow but no deformity. 10/17/17 08:37 Reevaluation #3: The patient was seen by the counter caser. She refused to give a home address. She gave some information about family members. The counter caser stated that she would try to get in touch with family members. The patient tolerated IV fluids well pulse oximetry and blood pressure were well maintained work of breathing was normal. X-rays of the elbow and the foot did not show fracture. The patient will be discharged. 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 However she is just recently purchased all her medications. She will be referred. 10/17/17 10:38 ED Medical Decision Making - Lab Data Result diagrams: 10/16/17 23:24 10/16/17 23:24 Laboratory Results - last 24 hr 10/16/17 10/16/17 23:24 23:24 WBC 10.0 RBC 4.99 Hgb 13.6 Hct 42.0 MCV 84 MCH 27 L MCHC 32 RDW 17.9 H Plt Count 267 Lymph % (Auto) 12.5 L [place] % (Auto) 7.5 H Eos % (Auto) 1.0 Baso % (Auto) 0.5 Lymph # 1.2 [place] # 0.7 Eos # 0.1 Baso # 0.1 Seg Neutrophils % 78.5 H Seg Neutrophils # 7.9 H Sodium 135 L Potassium 4.2 Chloride 94.7 L Carbon Dioxide 23 Anion Gap 22 BUN 26 H Creatinine 1.3 H Estimated GFR 50 BUN/Creatinine Ratio 20 Glucose 116 H Calcium 9.3 Total Bilirubin 0.70 AST 28 ALT 28 Alkaline Phosphatase 190 H Total Protein 6.8 Albumin 3.7 L Albumin/Globulin Ratio 1.2 Critical care attestation.: If time is entered above; I have spent that time in minutes in the direct care of this critically ill patient, excluding procedure time. ED Disposition Clinical Impression: Dilated cardiomyopathy, Volume depletion Sprain of elbow Qualifiers: Encounter type: initial encounter Laterality: left Qualified Code(s): S53.402A - Unspecified sprain of left elbow, initial encounter Sprain of foot, left Qualifiers: Encounter type: initial encounter Qualified Code(s): S93.602A - Unspecified sprain of left foot, initial encounter Disposition: TO HOME OR SELFCARE Is pt being admited?: No Does the pt Need Aspirin: No Condition: Stable Instructions: Heart Failure (ED), Elbow Sprain (ED), Foot Sprain (ED) Additional Instructions: Return any acute change or problems. Follow-up with referral physicians or clinic. Referrals: PRIMARY MD RAJINDER [Primary Care Provider] - 3-5 Days JARRED AGUIRRE MD [Staff Physician] - 10/19/17 [facility] [Provider Group] - 3-5 Days [facility] [Provider Group] - 3-5 Days Time of Disposition: 10:41
[2017-10-17] MEDS ORDERED: NACL 0.9% 1000 ML 1,000 ML IV ONE (06:35)
--- NOTE | 2017-10-17 07:23 | XRay Report ---
FINAL REPORT EXAM: XR CHEST 1V AP HISTORY: hypertension TECHNIQUE: A portable semi-erect view of the chest was obtained and compared to the study of 09/25/2017. FINDINGS: The heart is moderately enlarged. There are postsurgical changes from bypass surgery. The lungs are not overtly congested. There haziness in left lung base secondary to residual effusion/infiltrate. There is a pacemaker overlying the left chest wall with the leads in the right atrium and right ventricle. The bones and soft tissues otherwise are unchanged from the previous study. IMPRESSION: Cardiomegaly. Previous bypass surgery changes. Patchy residual airspace disease and/or small left-sided effusion noted.
[2017-10-17 08:55] LABS: Bilirubin,Urine NEG (Negative); Blood,Urine NEG (Negative); Color,Urine Yellow (Yellow); Mucus,Urine FEW /HPF; Nitrite,Urine NEG (Negative); Protein,Urine <15 mg/dL mg/dL (Negative)
--- NOTE | 2017-10-17 09:08 | XRay Report ---
Right elbow 2 views: History: Fall, pain. Findings: Arthritic changes are noted at the ulnar aspect of the elbow joint. No fracture dislocation or soft tissue calcification. No joint effusion. 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
--- NOTE | 2017-10-17 09:10 | XRay Report ---
Performed views: History: Fall and pain. Findings: There is osteopenia. No fracture or lytic lesion. Spur in the posterior inferior and superior aspect of the calcaneum. Arthritic changes in the talotibial joint and the talonavicular joint. Impression: There is osteopenia. Arthritic changes as detailed above.
[2017-10-17 11:19] VITALS: BP 138/78
== END 2017-10-17 11:18 | disposition home or self-care (01) ==
LOC: ED 21:27
DX: S53.402A Unspecified sprain of left elbow, initial encounter (principal); S93.602A Unspecified sprain of left foot, initial encounter; I42.0 Dilated cardiomyopathy; E86.9 Volume depletion, unspecified; I10 Essential (primary) hypertension; I25.2 Old myocardial infarction; I50.9 Heart failure, unspecified; X58.XXXA Exposure to other specified factors, initial encounter; Y93.89 Activity, other specified; Y92.89 Other specified places as the place of occurrence of the external cause; Y99.8 Other external cause status
CPT/HCPCS: 36415; 70450; 71045; 73070; 73630; 80053; 81001; 85025; 96360; 96361; 99284; J7030